=== PATIENT | male | born 1955 | race African-American/Black ===

== ENCOUNTER 2016-10-28 11:44 | Emergency (ER) | payer MEDICAID ==
[~2016-10-28] VITALS: Ht 175.3 cm; Wt 84.4 kg
[~2016-10-28 11:44] MED LIST: BACTRIM DS TAB1 EAC1 ORAL; KEFLEX500 MG ORAL; LISINOPRIL20 MG ORAL
[2016-10-28] MEDS ORDERED: Azithromycin 250mg tab ORAL ONE (12:15)
[2016-10-28] MEDS ORDERED: Lidocaine 1% MPF 10mg/ml 5ml IM ONE (12:15)
[2016-10-28 12:21] LABS: APPEARANCE,URINE SLIGHTLY CLOUDY; KETONES,URINE NEGATIVE (NEGATIVE); LEUKOCYTE ESTERASE ,URINE 3+ (NEGATIVE); NITRITE,URINE NEGATIVE (NEGATIVE); PH,URINE 5 (4.5-8.0); PROTEIN,URINE 2+ (NEGATIVE); UROBILINOGEN,URINE 1 MG/DL (0.0-1.0)
[2016-10-28 12:30] LABS: BACTERIA,URINE FEW /HPF; SQUAMOUS EPITHELIAL CELL,UR OCCASIONAL /LPF (NONE/OCC); WBC,URINE 30-40 /HPF (0 - 0)
[2016-10-28] MEDS ORDERED: NITROFURANTOIN100 M2 ORAL (12:47)
[2016-10-28 13:03] VITALS: BP 165/90
--- NOTE | 2016-10-28 13:26 | Emergency Room Report ---
History of Present Illness General Chief Complaint: Male Urogenital Problems Source: Patient, Medical Record Present Illness HPI 61YOM with painful penile yellow discharge since this morning. Multiple recent partners, no protection. No abd pain, nausea/vomiting, fever/chills, flank pain. History of gonorrhea. No other medical problems. Allergies: Coded Allergies: No Known Allergies (Unverified , 12/13/15) Patient History Past Medical History: none Past Surgical History: none Pertinent Family History: none Social History: Denies: alcohol use, drug use, smoking Immunizations: UTD Reviewed Nursing Documentation: PMH: Agreed, PSxH: Agreed Nursing Documentation-PMH Past Medical History: No History, Except For Hx Hypertension: Yes Review of Systems All Other Systems: negative except mentioned in HPI Physical Exam Vital Signs Date Time Temp Pulse Resp B/P Pulse Ox O2 Delivery O2 Flow Rate FiO2 10/28/16 11:50 97.9 80 16 169/93 99 Room Air Sp02 EP Interpretation: reviewed, abnormal General Appearance: normal inspection, well appearing, no apparent distress, alert, GCS 15, non-toxic, other - playing on [place] Head: normocephalic, atraumatic Eyes: bilateral eye EOMI, bilateral eye PERRL ENT: normal ENT inspection, hearing grossly normal, normal voice Neck: normal inspection, full range of motion, supple, no bony tend Respiratory: normal inspection, lungs clear, normal breath sounds, no respiratory distress, no retraction, no wheezing Cardiovascular #1: regular rate, rhythm, no edema Gastrointestinal: normal inspection, normal bowel sounds, non tender, soft, no guarding, no hernia Genitourinary: no CVA tenderness Musculoskeletal: normal inspection, back normal, normal range of motion, [place]w' s Sign negative Neurologic: normal inspection, alert, oriented x3, responsive, manager fiber III-XII nml as tested, motor strength/tone normal, speech normal Psychiatric: normal inspection, judgement/insight normal, mood/affect normal Skin: normal inspection, normal color, no rash Lymphatic: normal inspection Medical Decision Making Diagnostic Impression: Primary Impression: UTI (urinary tract infection) Qualified Codes: N30.01 - Acute cystitis with hematuria Additional Impression: Penile discharge ER Course Tx empirically for STDs in the ED RX Macrobid for possible concurrent UTI Well appearing VS notable for elevated BP - asymptomatic. Advised to followup with PMD for possible tx for HTN Counseled on safe sex practices DC home Last Vital Signs Date Time Temp Pulse Resp B/P Pulse Ox O2 Delivery O2 Flow Rate FiO2 10/28/16 13:03 97.7 80 16 165/90 97 Room Air Status: improved Disposition: HOME, SELF-CARE Condition: Improved Scripts Nitrofurantoin Monohyd/M-Cryst* (MACROBID 100 MG*) 100 Mg Capsule 100 MG ORAL EVERY 12 HOURS for 7 Days, #14 CAP Prov: JOSE ROSE M.D. 10/28/16 Patient Instructions: Urinary Tract Infection JOSE ROSE M.D. October 28, 2016 13:26
== END 2016-10-28 13:05 | disposition home or self-care (01) ==
LOC: EMR 12:28
DX: N30.01 Acute cystitis with hematuria (principal); R36.9 Urethral discharge, unspecified; I10 Essential (primary) hypertension
CPT/HCPCS: 81001; 87086; 96372; 99283; J0696; Q0144

== ENCOUNTER 2017-12-18 07:19 | Emergency (ER) | payer MEDICAID ==
[~2017-12-18] VITALS: Ht 172.7 cm; Wt 81.6 kg
[~2017-12-18 07:19] MED LIST changes: +NITROFURANTOIN100 M2 ORAL
[2017-12-18 07:41] VITALS: BP 143/82
[2017-12-18] MEDS ORDERED: Lidocaine 1% MPF 10mg/ml 5ml INJ ONE (07:45)
[2017-12-18 08:08] LABS: APPEARANCE,URINE SLIGHTLY CLOUDY; BILIRUBIN, URINE NEGATIVE (NEGATIVE); GLUCOSE, URINE (UA) NEGATIVE (NEGATIVE); KETONES,URINE NEGATIVE (NEGATIVE); LEUKOCYTE ESTERASE ,URINE 2+ (NEGATIVE); NITRITE,URINE NEGATIVE (NEGATIVE); PH,URINE 5 (4.5-8.0); PROTEIN,URINE NEGATIVE (NEGATIVE); UROBILINOGEN,URINE NORMAL MG/DL (0.0-1.0)
[2017-12-18 08:18] LABS: COLOR,URINE YELLOW
--- NOTE | 2017-12-18 08:31 | Emergency Room Report ---
History of Present Illness General Chief Complaint: Male Urogenital Problems Source: Patient Present Illness HPI Patient presents with dysuria. He had a questionable sexual contact. There is a discharge. He's had a sexually transmitted diseases in the past. He states this might be what going on at this time. No fevers, lymph node swelling, NVD, rashes. No URI, chest pain, dyspnea. Denies HIV. H/O HTN Allergies: Coded Allergies: No Known Allergies (Unverified , 12/13/15) Patient History Past Medical History: see triage record Past Surgical History: other - R wrist surgery Social History: Reports: smoking Social History Narrative was with "X" Reviewed Nursing Documentation: PMH: Agreed; PSxH: Agreed Nursing Documentation-PM Past Medical History: No History, Except For Hx Cardiac Problems: No Hx Hypertension: Yes Hx Pacemaker: No Hx Asthma: No Hx COPD: No Hx Diabetes: No Hx Cancer: No Hx Gastrointestinal Problems: No Hx Dialysis: No History Of Psychiatric Problem: No Hx Neurological Problems: No Hx Cerebrovascular Accident: No Hx Seizures: No Review of Systems All Other Systems: negative except mentioned in HPI Physical Exam Vital Signs Date Time Temp Pulse Resp B/P (MAP) Pulse Ox O2 Delivery O2 Flow Rate FiO2 12/18/17 07:31 97.9 68 16 143/82 96 Room Air 97.9 Sp02 EP Interpretation: reviewed, normal General Appearance: well appearing, no apparent distress, GCS 15 Head: normocephalic, atraumatic Eyes: bilateral eye normal inspection, bilateral eye PERRL ENT: hearing grossly normal, normal voice, moist mucus membranes Neck: full range of motion, supple Respiratory: no respiratory distress, speaking full sentences Cardiovascular #1: regular rate, rhythm Cardiovascular #2: 2+ radial (R) Gastrointestinal: normal inspection, normal bowel sounds, non tender, soft Genitourinary: scrotum normal, other - uncircumcised with d/c Musculoskeletal: back normal, digits/nails normal, gait/station normal, normal range of motion - except for R wrist, other - swan neck deform R wrist Neurologic: alert, normal gait, grossly normal Psychiatric: mood/affect normal Skin: no rash Medical Decision Making Diagnostic Impression: Primary Impression: Urethritis ER Course Patient presents with dysuria. His discharge. Clinical exam is most consistent with gonorrhea however, Chlamydia is another possibility. The patient treated with Rocephin and doxycycline. Labs will be sent. There is pyuria. Improved. Patient stable for outpatient observation and treatment. Laboratory Tests Test 12/18/17 07:30 Urine Color Yellow Urine Appearance Slightly cloudy Urine pH 5 (4.5-8.0) Urine Specific [place] 1.020 (1.005-1.035) Urine Protein Negative (NEGATIVE) Urine Glucose (UA) Negative (NEGATIVE) Urine Ketones Negative (NEGATIVE) Urine Occult Blood Negative (NEGATIVE) Urine Nitrite Negative (NEGATIVE) Urine Bilirubin Negative (NEGATIVE) Urine Urobilinogen Normal MG/DL (0.0-1.0) Urine Leukocyte Esterase 2+ (NEGATIVE) H Urine RBC 2-4 /HPF (0 - 0) H Urine WBC 10-15 /HPF (0 - 0) H Urine Squamous Epithelial Cells Few /LPF (NONE/OCC) Urine Bacteria Few /HPF (NONE) Last Vital Signs Date Time Temp Pulse Resp B/P (MAP) Pulse Ox O2 Delivery O2 Flow Rate FiO2 12/18/17 08:50 97.9 16 143/82 96 Room Air 97.9 12/18/17 07:31 68 Status: improved Disposition: HOME, SELF-CARE Condition: Improved Scripts Doxycycline Monohydrate* (DOXYCYCLINE MONOHYDRATE*) 100 Mg Capsule 100 MG ORAL Q12H, #14 CAP 0 Refills Prov: Mik Polk M.D. 12/18/17 Mik Polk M.D. Dec 18, 2017 08:31
[2017-12-18] MEDS ORDERED: DOXYCYCLINE MO100 MG ORAL (08:33)
[2017-12-18 08:50] VITALS: BP 143/82
== END 2017-12-18 08:50 | disposition home or self-care (01) ==
LOC: EMR 08:33
DX: N34.2 Other urethritis (principal); I10 Essential (primary) hypertension; F17.200 Nicotine dependence, unspecified, uncomplicated
CPT/HCPCS: 81003; 87086; 87590; 99283; J0696

== ENCOUNTER 2018-01-06 08:39 | Emergency (ER) | payer MEDICAID ==
[~2018-01-06] VITALS: Ht 175.3 cm; Wt 79.4 kg
[~2018-01-06 08:39] MED LIST changes: +DOXYCYCLINE MO100 MG ORAL
[2018-01-06] MEDS ORDERED: HYDROCHLOROTHIA25 MG ORAL (08:49)
[2018-01-06] MEDS ORDERED: Ampicillin/Sulbactam Sod 3 GM in NS 110 ML IV SCH (09:15)
[2018-01-06] MEDS ORDERED: Vancomycin 1.5gm/D5W 250ml 250 ML IVPB ONE (09:15)
--- NOTE | 2018-01-06 09:50 | Emergency Room Report ---
History of Present Illness General Chief Complaint: Syncope Source: Patient, Medical Record Present Illness HPI Patient is a 62-year-old male who presented after a syncopal episode. The patient reports feeling lightheaded. He subsequently fell. Patient denied any fever. He reports having increased swelling to his right lower extremity. This had been present intermittently since previous trauma to his right lower extremity. Patient has had multiple procedures including the fracture repair to the right lower extremity. Patient was noted to have increased drainage from right lower extremity wound. Allergies: Coded Allergies: No Known Allergies (Unverified , 12/13/15) Patient History Past Medical History: see triage record Reviewed Nursing Documentation: PMH: Agreed; PSxH: Agreed Nursing Documentation-PMH Past Medical History: No History, Except For Hx Cardiac Problems: No Hx Hypertension: Yes Hx Pacemaker: No Hx Asthma: No Hx COPD: No Hx Diabetes: No Hx Cancer: No Hx Gastrointestinal Problems: No Hx Dialysis: No Hx Neurological Problems: No Hx Cerebrovascular Accident: No Hx Seizures: No Review of Systems All Other Systems: negative except mentioned in HPI Physical Exam Vital Signs Date Time Temp Pulse Resp B/P (MAP) Pulse Ox O2 Delivery O2 Flow Rate FiO2 01/06/18 08:46 97.8 86 18 140/80 95 Room Air 97.9 Sp02 EP Interpretation: reviewed, normal General Appearance: normal inspection, well appearing, no apparent distress, alert, GCS 15, Chronically Ill Head: atraumatic ENT: normal ENT inspection, hearing grossly normal, normal voice Neck: normal inspection, full range of motion, supple, no bony tend Respiratory: normal inspection, lungs clear, no respiratory distress, no retraction, no wheezing Cardiovascular #1: regular rate, rhythm, edema - right leg slight edema Gastrointestinal: normal inspection, normal bowel sounds, non tender, soft, no guarding, no hernia Genitourinary: no CVA tenderness Musculoskeletal: normal inspection, back normal, decreased range of motion - right foot with slight swelling, open wound to heel with slight foul smelling drainage, other - right upper extremity chronic deformity, normal wrist ROM Neurologic: normal inspection, alert, oriented x3, responsive, manager store III-XII nml as tested, speech normal Psychiatric: normal inspection, judgement/insight normal, mood/affect normal Skin: normal inspection, normal color, no rash, other - right foot with abnormal soft tissue defect slight discoloration, no erythema Medical Decision Making Diagnostic Impression: Primary Impression: Abnormal EKG Additional Impression: Wound infection ER Course Patient presented for syncope. Differential diagnosis included but was not limited to arrhythmia, orthostatic hypotension, hypovolemia, vasovagal, anemia among others. EKG interpreted by me showed normal sinus rhythm with a rate of 73 with left ventricular hypertrophy as well as T-wave inversion in the inferior and lateral leads. Laboratory testing was unremarkable. Patient was given IV vancomycin as well as Unasyn the due to infection to his right heel. Patient was advised that he needed further workup due to abnormal EKG and he indicated understanding. Patient stated he could not stay in the hospital due to difficulty with early childhood associate.The patient was advised risk benefits alternatives of leaving AGAINST MEDICAL ADVICE and he indicated understanding and all questions are answered patient still continued want to leave and signed AGAINST MEDICAL ADVICE. Despite risks including but not limited to disability and worsening of current lifestyle. Labs Test 01/06/18 09:10 01/06/18 09:30 01/06/18 09:50 White Blood Count 10.8 K/UL (4.8-10.8) Red Blood Count 5.08 M/UL (4.70-6.10) Hemoglobin 14.8 G/DL (14.2-18.0) Hematocrit 44.4 % (42.0-52.0) Mean Corpuscular Volume 87 FL (80-99) Mean Corpuscular Hemoglobin 29.1 PG (27.0-31.0) Mean Corpuscular Hemoglobin Concent 33.2 G/DL (32.0-36.0) Red Cell Distribution Width 11.8 % (11.6-14.8) Platelet Count 358 K/UL (150-450) Mean Platelet Volume 6.5 FL (6.5-10.1) Neutrophils (%) (Auto) 62.0 % (45.0-75.0) Lymphocytes (%) (Auto) 28.3 % (20.0-45.0) Monocytes (%) (Auto) 7.8 % (1.0-10.0) Eosinophils (%) (Auto) 0.9 % (0.0-3.0) Basophils (%) (Auto) 1.0 % (0.0-2.0) Prothrombin Time 10.2 SEC (9.30-11.50) Prothromb Time International Ratio 1.0 (0.9-1.1) Activated Partial Thromboplast Time 29 SEC (23-33) Sodium Level 136 MMOL/L (136-145) Potassium Level 3.1 MMOL/L (3.5-5.1) Chloride Level 101 MMOL/L (98-107) Carbon Dioxide Level 25 MMOL/L (21-32) Anion Gap 10 mmol/L (5-15) Blood Urea Nitrogen 17 mg/dL (7-18) Creatinine 1.4 MG/DL (0.55-1.30) Estimat Glomerular Filtration Rate > 60 mL/min (>60) Glucose Level 112 MG/DL (74-106) Calcium Level 8.7 MG/DL (8.5-10.1) Phosphorus Level 3.5 MG/DL (2.5-4.9) Magnesium Level 1.8 MG/DL (1.8-2.4) Total Bilirubin 0.8 MG/DL (0.2-1.0) Aspartate Amino Transf (AST/SGOT) 12 U/L (15-37) Alanine Aminotransferase (ALT/SGPT) 12 U/L (12-78) Alkaline Phosphatase 78 U/L (46-116) Total Creatine Kinase 88 U/L (26-308) Creatine Kinase MB 1.4 NG/ML (0.0-3.6) Creatine Kinase MB Relative Index 1.5 Troponin I 0.005 ng/mL (0.000-0.056) Total Protein 7.5 G/DL (6.4-8.2) Albumin 3.4 G/DL (3.4-5.0) Globulin 4.1 g/dL Albumin/Globulin Ratio 0.8 (1.0-2.7) Lactic Acid Level 1.10 mmol/L (0.4-2.0) Urine Color Yellow Urine Appearance Clear Urine pH 5 (4.5-8.0) Urine Specific [place] 1.020 (1.005-1.035) Urine Protein Negative (NEGATIVE) Urine Glucose (UA) Negative (NEGATIVE) Urine Ketones Negative (NEGATIVE) Urine Occult Blood Negative (NEGATIVE) Urine Nitrite Negative (NEGATIVE) Urine Bilirubin Negative (NEGATIVE) Urine Urobilinogen 1 MG/DL (0.0-1.0) Urine Leukocyte Esterase Negative (NEGATIVE) Last Vital Signs Date Time Temp Pulse Resp B/P (MAP) Pulse Ox O2 Delivery O2 Flow Rate FiO2 01/06/18 08:46 97.8 86 18 140/80 95 Room Air 97.9 Status: improved Disposition: AGAINST MEDICAL ADVICE Condition: Stable Scripts Cephalexin* (KEFLEX*) 500 Mg Capsule 500 MG ORAL EVERY 6 HOURS, #40 CAP Prov: Eren Carter MD 01/06/18 Doxycycline Monohydrate* (DOXYCYCLINE MONOHYDRATE*) 100 Mg Capsule 100 MG ORAL Q12H, #20 CAP 0 Refills Prov: Eren Carter MD 01/06/18 Referrals: [facility],REFERRING (PCP) Eren Carter MD Jan 06, 2018 09:50
[2018-01-06 09:51] LABS: ANION GAP 10 mmol/L (5-15); BLOOD UREA NITROGEN 17 mg/dL (7-18); CALCIUM 8.7 MG/DL (8.5-10.1); CARBON DIOXIDE 25 MMOL/L (21-32); CHLORIDE 101 MMOL/L (98-107); CREATININE 1.4 MG/DL (0.55-1.30); POTASSIUM 3.1 MMOL/L (3.5-5.1); SODIUM 136 MMOL/L (136-145)
[2018-01-06 09:52] LABS: EOSINOPHILS % (AUTO) 0.9 % (0.0-3.0); HEMATOCRIT 44.4 % (42.0-52.0); HEMOGLOBIN 14.8 G/DL (14.2-18.0); LYMPHOCYTES % (AUTO) 28.3 % (20.0-45.0); MEAN CORPUSCULAR VOLUME 87 FL (80-99); MONOCYTES % (AUTO) 7.8 % (1.0-10.0); PLATELET COUNT 358 K/UL (150-450); RED BLOOD COUNT 5.08 M/UL (4.70-6.10); RED CELL DISTRIBUTION WIDTH 11.8 % (11.6-14.8); WHITE BLOOD COUNT 10.8 K/UL (4.8-10.8)
[2018-01-06 10:00] VITALS: BP 130/68
[2018-01-06 10:04] LABS: ALANINE AMINOTRANSFERASE 12 U/L (12-78); ALBUMIN 3.4 G/DL (3.4-5.0); ALBUMIN/GLOBULIN RATIO 0.8 (1.0-2.7); ALKALINE PHOSPHATASE 78 U/L (46-116); ASPARTATE AMINO TRANSFERASE 12 U/L (15-37); BILIRUBIN,TOTAL 0.8 MG/DL (0.2-1.0); CKMB 1.4 NG/ML (0.0-3.6); CREATINE KINASE 88 U/L (26-308); PHOSPHORUS 3.5 MG/DL (2.5-4.9)
[2018-01-06 10:09] LABS: APPEARANCE,URINE CLEAR; BILIRUBIN, URINE NEGATIVE (NEGATIVE); GLUCOSE, URINE (UA) NEGATIVE (NEGATIVE); KETONES,URINE NEGATIVE (NEGATIVE); LEUKOCYTE ESTERASE ,URINE NEGATIVE (NEGATIVE); NITRITE,URINE NEGATIVE (NEGATIVE); PH,URINE 5 (4.5-8.0); PROTEIN,URINE NEGATIVE (NEGATIVE); UROBILINOGEN,URINE 1 MG/DL (0.0-1.0)
[2018-01-06 10:12] LABS: COLOR,URINE YELLOW
--- NOTE | 2018-01-06 10:35 | Diagnostic Imaging Report ---
Indication: Shortness of breath Technique: XRAY Chest 1v Comparison: None Findings: Heart size within the upper limits for normal. Aorta is mildly tortuous. There is no focal airspace consolidation, pleural effusion or pneumothorax. No acute osseous abnormality identified. Impression: No radiographic evidence of acute cardiopulmonary disease.
[2018-01-06] MEDS ORDERED: DOXYCYCLINE MO100 MG ORAL (11:37)
[2018-01-06] MEDS ORDERED: CEPHALEXIN500 MG ORAL (11:37)
[2018-01-06 11:53] VITALS: BP 130/68
--- NOTE | 2018-01-07 14:58 | Cardiology Report ---
APPROVED REPORT EKG Measurement Heart [id number] [id number] Normal sinus rhythm Possible Left atrial enlargement Left ventricular hypertrophy with repolarization abnormality Abnormal ECG
--- NOTE | 2018-01-10 14:14 | Diagnostic Imaging Report ---
APPROVED REPORT CPT Code: 97305 Present Symptoms Lower Extremity Pain: Right RIGHT LEG: Venous imaging reveals a patent deep venous system. There is no evidence of thrombus within the femoral, popliteal or tibial segments. The greater saphenous vein is also within normal limits. Doppler indicates normal spontaneous flow within these segments. INCIDENTAL FINDINGS: Imaging of the ( right) popliteal fossa reveals a Bakers cyst measuring approximately 0.9cm x 1.0 cm.
== END 2018-01-06 11:55 | disposition left against medical advice (07) ==
LOC: EMR 09:24 → CANBEDREQ 11:38 → EMR 11:55
DX: R94.31 Abnormal electrocardiogram [ECG] [EKG] (principal); S91.301A Unspecified open wound, right foot, initial encounter; I10 Essential (primary) hypertension
CPT/HCPCS: 36415; 71045; 80053; 81003; 82550; 82553; 83605; 83735; 84100; 84484; 85025; 85610; 85730; 87040; 93005; 93971; 96365; 96366; 96367; 99285; J0295; J3370; J8499

== ENCOUNTER 2018-01-17 08:52 | Emergency (ER) | payer MEDICAID ==
[~2018-01-17] VITALS: Ht 175.3 cm; Wt 81.6 kg
[~2018-01-17 08:52] MED LIST changes: +CEPHALEXIN500 MG ORAL; +HYDROCHLOROTHIA25 MG ORAL
[2018-01-17 09:01] VITALS: BP 127/74
[2018-01-17] MEDS ORDERED: Aspirin Baby 81mg ORAL ONE (09:15)
[2018-01-17 09:28] LABS: HEMATOCRIT 39.4 % (42.0-52.0); HEMOGLOBIN 13.6 G/DL (14.2-18.0); LYMPHOCYTES % (AUTO) 27.9 % (20.0-45.0); MEAN CORPUSCULAR VOLUME 87 FL (80-99); MONOCYTES % (AUTO) 7.4 % (1.0-10.0); NEUTROPHILS % (AUTO) 61.7 % (45.0-75.0); PLATELET COUNT 300 K/UL (150-450); RED BLOOD COUNT 4.53 M/UL (4.70-6.10); RED CELL DISTRIBUTION WIDTH 11.4 % (11.6-14.8); WHITE BLOOD COUNT 9.1 K/UL (4.8-10.8)
--- NOTE | 2018-01-17 09:37 | Emergency Room Report ---
History of Present Illness General Chief Complaint: Chest Pain Source: Patient, Medical Record Present Illness HPI Patient presents with complaints of chest pain external Denies any shortness of breath Reports that the pain came on this morning at rest Describes it as 3 out of 10 midsternal and left upper chest at times heavy at times sharp Denies any change with position or exertion denies any vomiting or diarrhea Denies any back or flank pain Patient has a previous injury involving the right lower extremity in the right wrist this was many years ago Patient reports that he has been trying to have a revision done of his right leg Allergies: Coded Allergies: No Known Allergies (Unverified , 12/13/15) Patient History Past Medical History: see triage record Pertinent Family History: none Reviewed Nursing Documentation: PMH: Agreed; PSxH: Agreed Nursing Documentation-PMH Past Medical History: No History, Except For Hx Cardiac Problems: No Hx Hypertension: Yes Hx Pacemaker: No Hx Asthma: No Hx COPD: No Hx Diabetes: No Hx Cancer: No Hx Gastrointestinal Problems: No Hx Dialysis: No Hx Neurological Problems: No Hx Cerebrovascular Accident: No Hx Seizures: No Review of Systems All Other Systems: negative except mentioned in HPI Physical Exam Vital Signs Date Time Temp Pulse Resp B/P (MAP) Pulse Ox O2 Delivery O2 Flow Rate FiO2 01/17/18 08:56 98.4 82 18 127/74 95 Room Air 98.4 Sp02 EP Interpretation: reviewed, normal General Appearance: well appearing, no apparent distress Head: normocephalic, atraumatic Eyes: bilateral eye PERRL, bilateral eye EOMI ENT: normal pharynx Neck: full range of motion Respiratory: chest non-tender, lungs clear Cardiovascular #1: regular rate, rhythm Gastrointestinal: non tender, soft, no mass Genitourinary: no CVA tenderness Musculoskeletal: other - Patient has even urgent of his right ankle, previous surgery on the right wrist Neurologic: alert, oriented x3 Skin: other - Reports swelling of his right ankle Lymphatic: no adenopathy Medical Decision Making Diagnostic Impression: Primary Impression: ACS (acute coronary syndrome) ER Course Patient is a fairly complex patient with multiple differential to consideration including but not limited to cardiac cardiopulmonary and vascular emergencies Given the patient's description of pain EKG is abnormal patient has not had any previous cardiac workup Patient will require further inpatient care and evaluation Initial lab work is appropriate And patient requested for admission in improved yet serious condition Labs Test 01/17/18 09:20 White Blood Count 9.1 K/UL (4.8-10.8) Red Blood Count 4.53 M/UL (4.70-6.10) Hemoglobin 13.6 G/DL (14.2-18.0) Hematocrit 39.4 % (42.0-52.0) Mean Corpuscular Volume 87 FL (80-99) Mean Corpuscular Hemoglobin 30.1 PG (27.0-31.0) Mean Corpuscular Hemoglobin Concent 34.6 G/DL (32.0-36.0) Red Cell Distribution Width 11.4 % (11.6-14.8) Platelet Count 300 K/UL (150-450) Mean Platelet Volume 5.6 FL (6.5-10.1) Neutrophils (%) (Auto) 61.7 % (45.0-75.0) Lymphocytes (%) (Auto) 27.9 % (20.0-45.0) Monocytes (%) (Auto) 7.4 % (1.0-10.0) Eosinophils (%) (Auto) 2.0 % (0.0-3.0) Basophils (%) (Auto) 1.0 % (0.0-2.0) Sodium Level 132 MMOL/L (136-145) Potassium Level 3.4 MMOL/L (3.5-5.1) Chloride Level 103 MMOL/L (98-107) Carbon Dioxide Level 25 MMOL/L (21-32) Anion Gap 4 mmol/L (5-15) Blood Urea Nitrogen 16 mg/dL (7-18) Creatinine 1.3 MG/DL (0.55-1.30) Estimat Glomerular Filtration Rate > 60 mL/min (>60) Glucose Level 106 MG/DL (74-106) Calcium Level 8.6 MG/DL (8.5-10.1) Total Bilirubin 0.9 MG/DL (0.2-1.0) Aspartate Amino Transf (AST/SGOT) 15 U/L (15-37) Alanine Aminotransferase (ALT/SGPT) 15 U/L (12-78) Alkaline Phosphatase 77 U/L (46-116) Total Creatine Kinase 111 U/L (26-308) Creatine Kinase MB 1.9 NG/ML (0.0-3.6) Creatine Kinase MB Relative Index 1.7 Troponin I 0.000 ng/mL (0.000-0.056) Pro-B-Type Natriuretic Peptide 124 pg/mL (0-125) Total Protein 6.9 G/DL (6.4-8.2) Albumin 3.2 G/DL (3.4-5.0) Globulin 3.7 g/dL Albumin/Globulin Ratio 0.9 (1.0-2.7) Labs Test 01/17/18 09:20 White Blood Count 9.1 K/UL (4.8-10.8) Red Blood Count 4.53 M/UL (4.70-6.10) Hemoglobin 13.6 G/DL (14.2-18.0) Hematocrit 39.4 % (42.0-52.0) Mean Corpuscular Volume 87 FL (80-99) Mean Corpuscular Hemoglobin 30.1 PG (27.0-31.0) Mean Corpuscular Hemoglobin Concent 34.6 G/DL (32.0-36.0) Red Cell Distribution Width 11.4 % (11.6-14.8) Platelet Count 300 K/UL (150-450) Mean Platelet Volume 5.6 FL (6.5-10.1) Neutrophils (%) (Auto) 61.7 % (45.0-75.0) Lymphocytes (%) (Auto) 27.9 % (20.0-45.0) Monocytes (%) (Auto) 7.4 % (1.0-10.0) Eosinophils (%) (Auto) 2.0 % (0.0-3.0) Basophils (%) (Auto) 1.0 % (0.0-2.0) Sodium Level 132 MMOL/L (136-145) Potassium Level 3.4 MMOL/L (3.5-5.1) Chloride Level 103 MMOL/L (98-107) Carbon Dioxide Level 25 MMOL/L (21-32) Anion Gap 4 mmol/L (5-15) Blood Urea Nitrogen 16 mg/dL (7-18) Creatinine 1.3 MG/DL (0.55-1.30) Estimat Glomerular Filtration Rate > 60 mL/min (>60) Glucose Level 106 MG/DL (74-106) Calcium Level 8.6 MG/DL (8.5-10.1) EKG Diagnostic Results Rate: normal Rhythm: NSR ST Segments: other - Nonspecific ST and T-wave changes including flipped T waves in 2-3 aVF and V6 Rhythm Strip Diag. Results EP Interpretation: yes Rate: 66 Rhythm: NSR, no PVC's, no ectopy Chest X-Ray Diagnostic Results Chest X-Ray Diagnostic Results : Chest X-Ray Ordered: Yes # of Views/Limited/Complete: 1 View Indication: Chest Pain EP Interpretation: Yes Interpretation: no consolidation, no effusion, no pneumothorax Impression: No acute disease Electronically Signed by: Sulaiman Vasquez DO Last Vital Signs Date Time Temp Pulse Resp B/P (MAP) Pulse Ox O2 Delivery O2 Flow Rate FiO2 01/17/18 09:01 82 18 01/17/18 09:01 98.4 127/74 95 Room Air 98.4 Status: improved Disposition: XFER SHT-TRM HOSP Condition: Serious Referrals: [facility],REFERRING (PCP) Sulaimna Vasquez DO Jan 17, 2018 09:37
[2018-01-17 09:41] LABS: ANION GAP 4 mmol/L (5-15); BLOOD UREA NITROGEN 16 mg/dL (7-18); CALCIUM 8.6 MG/DL (8.5-10.1); CARBON DIOXIDE 25 MMOL/L (21-32); CHLORIDE 103 MMOL/L (98-107); CREATININE 1.3 MG/DL (0.55-1.30); POTASSIUM 3.4 MMOL/L (3.5-5.1); SODIUM 132 MMOL/L (136-145)
[2018-01-17 09:57] LABS: ALANINE AMINOTRANSFERASE 15 U/L (12-78); ALBUMIN 3.2 G/DL (3.4-5.0); ALBUMIN/GLOBULIN RATIO 0.9 (1.0-2.7); ALKALINE PHOSPHATASE 77 U/L (46-116); ASPARTATE AMINO TRANSFERASE 15 U/L (15-37); BILIRUBIN,TOTAL 0.9 MG/DL (0.2-1.0); CKMB 1.9 NG/ML (0.0-3.6); CREATINE KINASE 111 U/L (26-308)
--- NOTE | 2018-01-17 09:58 | Diagnostic Imaging Report ---
EXAM: XR Chest, 1 View CLINICAL HISTORY: CP TECHNIQUE: Frontal view of the chest. COMPARISON: Chest x-ray 01/06/18 FINDINGS: Lungs: Mild right lower lung atelectasis/mild infiltrate. Lungs otherwise clear. Pleural space: Unremarkable. No pneumothorax. Heart: Mild cardiomegaly. Mediastinum: Unremarkable. Bones/joints: Unremarkable. Other findings: IMPRESSION: Mild right lower lung atelectasis/infiltrate.
[2018-01-17 11:44] VITALS: BP 118/76
[2018-01-17 14:16] VITALS: BP 122/68
[2018-01-17 14:48] VITALS: BP 122/68
--- NOTE | 2018-01-18 18:40 | Cardiology Report ---
APPROVED REPORT EKG Measurement Heart [id number] [id number] Normal sinus rhythm Incomplete right bundle branch block Minimal voltage criteria for LVH, may be normal variant Abnormal ECG
== END 2018-01-17 14:50 | disposition short-term general hospital (02) ==
LOC: EMR 09:04
DX: I24.9 Acute ischemic heart disease, unspecified (principal)
CPT/HCPCS: 36415; 71045; 80053; 82550; 82553; 83880; 84484; 85025; 93005; 99284

== ENCOUNTER 2018-07-05 07:23 | Emergency (ER) | payer MEDICAID ==
[~2018-07-05] VITALS: Ht 175.3 cm; Wt 77.1 kg
--- NOTE | 2018-07-05 07:40 | NUR ---
ED Nurse Note: Patient walked into ED from home, patient drove himself here by himself, c/o watery stool for 1 week, abd pain for 3 days, no n/v.
[2018-07-05] MEDS ORDERED: Ketorolac 30mg Inj IV ONE (08:15)
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
[2018-07-05 08:29] VITALS: BP 172/86
[2018-07-05 08:36] LABS: APPEARANCE,URINE CLEAR; BILIRUBIN, URINE NEGATIVE (NEGATIVE); GLUCOSE, URINE (UA) NEGATIVE (NEGATIVE); KETONES,URINE 1+ (NEGATIVE); LEUKOCYTE ESTERASE ,URINE 1+ (NEGATIVE); NITRITE,URINE NEGATIVE (NEGATIVE); PH,URINE 5 (4.5-8.0); PROTEIN,URINE NEGATIVE (NEGATIVE); UROBILINOGEN,URINE 1 MG/DL (0.0-1.0)
[2018-07-05 08:38] LABS: COLOR,URINE YELLOW
[2018-07-05 08:40] LABS: BASOPHILS % (AUTO) 0.8 % (0.0-2.0); EOSINOPHILS % (AUTO) 1.2 % (0.0-3.0); HEMOGLOBIN 14.9 G/DL (14.2-18.0); MEAN CORPUSCULAR VOLUME 89 FL (80-99); MONOCYTES % (AUTO) 8.7 % (1.0-10.0); NEUTROPHILS % (AUTO) 61.2 % (45.0-75.0); PLATELET COUNT 307 K/UL (150-450); RED BLOOD COUNT 5.03 M/UL (4.70-6.10); WHITE BLOOD COUNT 8.3 K/UL (4.8-10.8)
[2018-07-05 08:46] LABS: ANION GAP 7 mmol/L (5-15); BLOOD UREA NITROGEN 8 mg/dL (7-18); CALCIUM 8.9 MG/DL (8.5-10.1); CARBON DIOXIDE 27 MMOL/L (21-32); CHLORIDE 104 MMOL/L (98-107); CREATININE 1.2 MG/DL (0.55-1.30); POTASSIUM 4.5 MMOL/L (3.5-5.1); SODIUM 138 MMOL/L (136-145)
[2018-07-05 08:59] LABS: ALANINE AMINOTRANSFERASE 16 U/L (12-78); ALBUMIN 3.4 G/DL (3.4-5.0); ALBUMIN/GLOBULIN RATIO 0.8 (1.0-2.7); ALKALINE PHOSPHATASE 82 U/L (46-116); ASPARTATE AMINO TRANSFERASE 14 U/L (15-37); BILIRUBIN,TOTAL 0.4 MG/DL (0.2-1.0); CREATINE KINASE 96 U/L (26-308)
--- NOTE | 2018-07-05 09:26 | Diagnostic Imaging Report ---
EXAM: XR Abdomen, 1 Views CLINICAL HISTORY: ABD PAIN TECHNIQUE: Frontal view of the abdomen/pelvis . COMPARISON: No relevant prior studies available. FINDINGS: Gastrointestinal tract: Nonspecific gassy small bowel in the left abdomen. No bowel obstruction. Bones/joints: Unremarkable. Vasculature: Phleboliths in the pelvis. Other findings: . IMPRESSION: Nonspecific gassy small bowel in the left abdomen. No bowel obstruction.
--- NOTE | 2018-07-05 09:27 | Diagnostic Imaging Report ---
EXAM: XR Chest, 1 View CLINICAL HISTORY: ABD PAIN TECHNIQUE: Frontal view of the chest. COMPARISON: No relevant prior studies available. FINDINGS: Lungs: Unremarkable. No consolidation. Pleural space: Unremarkable. No pneumothorax. Heart: Cardiomegaly. Mediastinum: Unremarkable. Bones/joints: Unremarkable. Vasculature: Ectatic aorta. IMPRESSION: No acute findings.
[2018-07-05] MEDS ORDERED: TRAMADOL HCL50 MG ORAL (10:19)
[2018-07-05] MEDS ORDERED: TYLENOL325 MG ORAL (10:19)
[2018-07-05 10:28] VITALS: BP 172/86
[2018-07-05] MEDS ORDERED: Lisinopril 10mg tab ORAL ONE (10:30)
--- NOTE | 2018-07-05 10:30 | NUR ---
ED Nurse Note: Patient is discharged by ERMD Dr. Polk. patient's ID band removed and IV is taken out without any complication. Discharge paper/instruction/prescription given and explained to the patient, patient verbalized understanding. Patient left ED with steady gait with all belongings. patient cleared for discharge, MD noted BP, lisinopril given at ED as pt stated he did not take one this morning.
--- NOTE | 2018-07-05 11:06 | Cardiology Report ---
APPROVED REPORT EKG Measurement Heart [id number] Normal sinus rhythm Possible Left atrial enlargement Left ventricular hypertrophy T wave abnormality, consider inferior ischemia Abnormal ECG
== END 2018-07-05 10:32 | disposition home or self-care (01) ==
LOC: EMR 10:00
DX: R10.32 Left lower quadrant pain (principal); I10 Essential (primary) hypertension; F17.200 Nicotine dependence, unspecified, uncomplicated; Z96.641 Presence of right artificial hip joint
CPT/HCPCS: 36415; 71045; 74018; 80053; 81003; 82550; 83690; 84484; 85025; 85610; 85730; 93005; 96361; 96374; 96375; 99284; J1885; J2405

== ENCOUNTER 2018-08-07 10:10 | Emergency (ER) | payer MEDICAID ==
[~2018-08-07] VITALS: Ht 172.7 cm; Wt 77.1 kg
[~2018-08-07 10:10] MED LIST changes: +TRAMADOL HCL50 MG ORAL; +TYLENOL325 MG ORAL
[2018-08-07 10:25] VITALS: BP 159/90
--- NOTE | 2018-08-07 10:25 | NUR ---
ED Nurse Note: A/OX4. AMBULATED IN TO ER DUE TO A SMALL LUMP IN THE RIGHT TESTICLE. PT DENIES ANY PAIN, SWELLING, ITCHING, NOR DISCHARGE. SYMMETRY NOTED ON THE BILATERAL TESTICLES.
--- NOTE | 2018-08-07 10:28 | NUR ---
ED Nurse Note: urine sent down to the lab.
[2018-08-07 10:31] LABS: APPEARANCE,URINE CLEAR; BILIRUBIN, URINE NEGATIVE (NEGATIVE); GLUCOSE, URINE (UA) NEGATIVE (NEGATIVE); KETONES,URINE NEGATIVE (NEGATIVE); LEUKOCYTE ESTERASE ,URINE 1+ (NEGATIVE); NITRITE,URINE NEGATIVE (NEGATIVE); PH,URINE 5 (4.5-8.0); PROTEIN,URINE NEGATIVE (NEGATIVE); UROBILINOGEN,URINE 4 MG/DL (0.0-1.0)
[2018-08-07 10:42] LABS: COLOR,URINE YELLOW
--- NOTE | 2018-08-07 10:43 | NUR ---
ED Nurse Note: US AT THE BEDSIDE.
--- NOTE | 2018-08-07 12:10 | Diagnostic Imaging Report ---
Indications: Palpable right scrotal mass Technique: Grayscale and duplex images of the scrotum Comparison: none Findings: There is a palpable smooth mobile mass in the upper right hemiscrotum. This is equivocally adjacent to the spermatic cord, possibly in the lower inguinal canal. This is slightly heterogeneously hypoechoic, measures 2.9 x 1.3 cm, contains internal vascularity. The right testicle measures 4.3cm in length. It demonstrates normal echogenicity. Normal Doppler flow. A small cyst is seen in the epididymal head. There is a small right hydrocele. There is a questionable small right varicocele The left testicle measures 4.7 cm in length. It demonstrates normal echogenicity and normal Doppler flow. There is a 1.5 cm cyst in the epididymal head. There is questionably a small varicocele. Impression: Uniformly hypoechoic upper intrascrotal mass with internal vascularity, possibly but not definitively related to the spermatic cord. 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 MRI recommended for more definitive evaluation. Should lesion turned out not to be a lipoma then urological evaluation is recommended due to high likelihood of malignancy in non-lipomatous lesions of the inguinal canal No testicular abnormality demonstrated Bilateral epididymal cysts versus spermatoceles. Bilateral small varicoceles, small right hydrocele incidentally noted Findings discussed by phone with Dr. Galan at the time of interpretation
--- NOTE | 2018-08-07 12:31 | Emergency Room Report ---
History of Present Illness General Chief Complaint: Male Urogenital Problems Source: Patient Present Illness HPI Patient states he noted a lump in his right scrotum. He states he noticed this many months ago. He is here to get it evaluated. He denies pain. He denies dysuria or hematuria. He states that he has had urinary frequency. He states the last time he had urinary frequency he had Trichomonas. He would like treatment for STDs as a precaution. He has no other complaints. Allergies: Coded Allergies: No Known Allergies (Unverified , 12/13/15) Patient History Past Medical History: see triage record, HTN Social History: Denies: smoking, alcohol use, drug use Reviewed Nursing Documentation: PMH: Agreed; PSxH: Agreed Nursing Documentation-PMH Past Medical History: No History, Except For Hx Cardiac Problems: No Hx Hypertension: Yes Hx Pacemaker: No Hx Asthma: No Hx COPD: No Hx Diabetes: No Hx Cancer: No Hx Gastrointestinal Problems: No Hx Dialysis: No History Of Psychiatric Problem: No Hx Neurological Problems: No Hx Cerebrovascular Accident: No Hx Seizures: No Review of Systems All Other Systems: negative except mentioned in HPI Physical Exam Vital Signs Date Time Temp Pulse Resp B/P (MAP) Pulse Ox O2 Delivery O2 Flow Rate FiO2 08/07/18 10:17 97.7 75 14 159/90 94 Room Air Sp02 EP Interpretation: reviewed, normal General Appearance: no apparent distress, alert, GCS 15, non-toxic Head: normocephalic, atraumatic Eyes: bilateral eye normal inspection, bilateral eye PERRL ENT: hearing grossly normal, normal pharynx, no angioedema, normal voice Neck: full range of motion, supple/symm/no masses Respiratory: chest non-tender, lungs clear, normal breath sounds, no respiratory distress, no retraction, no accessory muscle use, speaking full sentences Cardiovascular #1: regular rate, rhythm, no edema Gastrointestinal: normal bowel sounds, non tender, soft, non-distended, no guarding, no rebound Rectal: deferred Genitourinary: normal inspection, no CVA tenderness, other - smooth mass palpable adjacent to the R. inguinal canal, upper hemiscrotum. Musculoskeletal: back normal, gait/station normal, normal range of motion, non- tender Neurologic: alert, oriented x3, responsive, motor strength/tone normal, sensory intact, speech normal Psychiatric: judgement/insight normal, memory normal, mood/affect normal, no suicidal/homicidal ideation Skin: normal color, no rash, warm/dry, well hydrated Medical Decision Making Diagnostic Impression: Primary Impression: Scrotal mass ER Course Patient is found to have a mass in the right hemiscrotum. The radiologist states that this is likely a lipoma. However, malignancy cannot be ruled out at this time. The patient was instructed that he would need to undergo an MRI of this area as an outpatient. He was instructed to follow-up closely with his primary care physician to obtain this. The patient also requested STD treatment. He was given Rocephin IM, azithromycin and Flagyl by mouth to cover gonorrhea, Chlamydia and trichomoniasis. This is at the patient's request. The patient is given close follow-up instructions and return precautions. Laboratory Tests Test 08/07/18 10:25 Urine Color Yellow Urine Appearance Clear Urine pH 5 (4.5-8.0) Urine Specific [place] 1.020 (1.005-1.035) Urine Protein Negative (NEGATIVE) Urine Glucose (UA) Negative (NEGATIVE) Urine Ketones Negative (NEGATIVE) Urine Blood 1+ (NEGATIVE) H Urine Nitrite Negative (NEGATIVE) Urine Bilirubin Negative (NEGATIVE) Urine Urobilinogen 4 MG/DL (0.0-1.0) H Urine Leukocyte Esterase 1+ (NEGATIVE) H Urine RBC 0-2 /HPF (0 - 0) H Urine WBC 0-2 /HPF (0 - 0) Urine Squamous Epithelial Cells Few /LPF (NONE/OCC) Urine Bacteria Occasional /HPF (NONE) CT/MRI/US Diagnostic Results CT/MRI/US Diagnostic Results : Imaging Test Ordered: US Scrotum Impression Impression: Uniformly hypoechoic upper intrascrotal mass with internal vascularity, possibly but not definitively related to the spermatic cord. 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 MRI recommended for more definitive evaluation. Should lesion turned out not to be a lipoma then urological evaluation is recommended due to high likelihood of malignancy in non-lipomatous lesions of the inguinal canal No testicular abnormality demonstrated Bilateral epididymal cysts versus spermatoceles. Bilateral small varicoceles, small right hydrocele incidentally noted Last Vital Signs Date Time Temp Pulse Resp B/P (MAP) Pulse Ox O2 Delivery O2 Flow Rate FiO2 08/07/18 10:25 97.7 75 14 159/90 94 Room Air Status: improved Disposition: HOME, SELF-CARE Condition: Improved Referrals: NON PHYSICIAN (PCP) Marlena Segura DO Aug 07, 2018 12:31
[2018-08-07] MEDS ORDERED: Lidocaine 1% MPF 10mg/ml 5ml INJ ONE (13:30)
[2018-08-07] MEDS ORDERED: Azithromycin 250mg tab ORAL ONE (13:30)
[2018-08-07] MEDS ORDERED: metroNIDAZOLE 500mg tab ORAL ONE (13:30)
[2018-08-07 14:15] VITALS: BP 145/82
--- NOTE | 2018-08-07 14:15 | NUR ---
ED Nurse Note: Pt cleared by health care Provider for discharge. DC instructions/prescription was given and explained to pt and verbalized understanding of teachings. All medical deviecs such as ID band removed. Pt is AAO x4, ambulatory and left with all personal belongings.
== END 2018-08-07 14:16 | disposition home or self-care (01) ==
LOC: EMR 10:45
DX: N50.89 Other specified disorders of the male genital organs (principal); I10 Essential (primary) hypertension
CPT/HCPCS: 76870; 81003; 96372; 99284; J0696; Q0144

== ENCOUNTER 2018-10-24 04:35 | Emergency (ER) | payer MEDICARE, MEDICAID ==
[~2018-10-24] VITALS: Ht 175.3 cm; Wt 79.4 kg
[2018-10-24 04:55] VITALS: BP 204/94
--- NOTE | 2018-10-24 04:55 | NUR ---
ER Nurse Note: Pt coming from home c/o bleeding in stool since 10/23. Pt stated this is the first time having bloody stools. Pt states he has cramping, 8/10 pain non radiating. Pt denies trauma, abnormal ingestion, no recent travels. Pt a&ox4, no signs of distress. Labs drawn and sent to lab;awaiting results. Will continue to montior.
[2018-10-24] MEDS ORDERED: Isovue-300 100ml vial INJ PRN (05:15)
[2018-10-24 05:30] LABS: APPEARANCE,URINE CLEAR; BILIRUBIN, URINE NEGATIVE (NEGATIVE); COLOR,URINE PALE YELLOW; GLUCOSE, URINE (UA) NEGATIVE (NEGATIVE); KETONES,URINE NEGATIVE (NEGATIVE); LEUKOCYTE ESTERASE ,URINE 1+ (NEGATIVE); NITRITE,URINE NEGATIVE (NEGATIVE); PH,URINE 5 (4.5-8.0); PROTEIN,URINE NEGATIVE (NEGATIVE); UROBILINOGEN,URINE NORMAL MG/DL (0.0-1.0)
[2018-10-24 05:31] LABS: EOSINOPHILS % (AUTO) 2.1 % (0.0-3.0); HEMATOCRIT 38.3 % (42.0-52.0); LYMPHOCYTES % (AUTO) 29.3 % (20.0-45.0); MEAN CORPUSCULAR VOLUME 88 FL (80-99); MONOCYTES % (AUTO) 6.8 % (1.0-10.0); NEUTROPHILS % (AUTO) 60.8 % (45.0-75.0); PLATELET COUNT 301 K/UL (150-450); RED BLOOD COUNT 4.33 M/UL (4.70-6.10); RED CELL DISTRIBUTION WIDTH 13.5 % (11.6-14.8); WHITE BLOOD COUNT 8.4 K/UL (4.8-10.8)
[2018-10-24] MEDS ORDERED: Dicyclomine HCl 10mg/5ml oral soln ORAL ONE (05:45)
[2018-10-24] MEDS ORDERED: Morphine Sulfate 4mg/ml Inj (IV USE ONLY) IVP ONE (05:45)
[2018-10-24 05:46] LABS: ANION GAP 8 mmol/L (5-15); BLOOD UREA NITROGEN 9 mg/dL (7-18); CALCIUM 8.5 MG/DL (8.5-10.1); CARBON DIOXIDE 27 MMOL/L (21-32); CHLORIDE 105 MMOL/L (98-107); CREATININE 1.2 MG/DL (0.55-1.30); POTASSIUM 3.7 MMOL/L (3.5-5.1); SODIUM 140 MMOL/L (136-145)
--- NOTE | 2018-10-24 05:48 | NUR ---
ER Nurse Note: Pt finished oral contrast. Awaiting CT. Pt recieved pain meds; tolerated well. Pt relaxed, cooperative. Will continnue to monitor.
[2018-10-24 05:49] LABS: ALANINE AMINOTRANSFERASE 17 U/L (12-78); ALBUMIN 3.3 G/DL (3.4-5.0); ALBUMIN/GLOBULIN RATIO 0.8 (1.0-2.7); ALKALINE PHOSPHATASE 78 U/L (46-116); ASPARTATE AMINO TRANSFERASE 14 U/L (15-37); BILIRUBIN,TOTAL 0.5 MG/DL (0.2-1.0)
[2018-10-24 05:56] VITALS: BP 176/91
--- NOTE | 2018-10-24 06:27 | Emergency Room Report ---
History of Present Illness General Chief Complaint: Gastrointestinal Bleed Source: Patient (Nahid Bedoya MD) Present Illness HPI 63-year-old male presents ED for evaluation. Complaining of lower abdominal pain and blood in stool 1 day. Pain is cramping, 6 out of 10, nonradiating. Denies fevers or chills. Denies any blood thinners. No other aggravating relieving factors. Denies any other associated symptoms (Nahid Bedoya MD) Allergies: Coded Allergies: No Known Allergies (Unverified , 12/13/15) Patient History Past Medical History: HTN Past Surgical History: none Pertinent Family History: none Social History: Denies: smoking, alcohol use, drug use Immunizations: UTD Reviewed Nursing Documentation: PMH: Agreed; PSxH: Agreed (Nahid Bedoya MD) Nursing Documentation-PMH Past Medical History: No History, Except For Hx Cardiac Problems: No Hx Hypertension: Yes Hx Pacemaker: No Hx Asthma: No Hx COPD: No Hx Diabetes: No Hx Cancer: No Hx Gastrointestinal Problems: No Hx Dialysis: No Hx Neurological Problems: No Hx Cerebrovascular Accident: No Hx Seizures: No (Nahid Bedoya MD) Review of Systems All Other Systems: negative except mentioned in HPI (Nahid Bedoya MD) Physical Exam Vital Signs Date Time Temp Pulse Resp B/P (MAP) Pulse Ox O2 Delivery O2 Flow Rate FiO2 10/24/18 04:44 97.9 80 12 94 Room Air 10/24/18 04:55 204/94 Sp02 EP Interpretation: reviewed, normal General Appearance: no apparent distress, alert, GCS 15, non-toxic Head: normocephalic, atraumatic Eyes: bilateral eye normal inspection, bilateral eye PERRL ENT: hearing grossly normal, normal pharynx, no angioedema, normal voice Neck: full range of motion, supple/symm/no masses Respiratory: chest non-tender, lungs clear, normal breath sounds, speaking full sentences Cardiovascular #1: regular rate, rhythm, no edema Cardiovascular #2: 2+ carotid (R), 2+ carotid (L), 2+ radial (R), 2+ radial (L) , 2+ dorsalis pedis (R), 2+ dorsalis pedis (L) Gastrointestinal: normal bowel sounds, soft, non-distended, no guarding, no rebound, tenderness Rectal: deferred Genitourinary: normal inspection, no CVA tenderness Musculoskeletal: back normal, gait/station normal, normal range of motion, non- tender Neurologic: alert, oriented x3, responsive, motor strength/tone normal, sensory intact, speech normal Psychiatric: judgement/insight normal, memory normal, mood/affect normal, no suicidal/homicidal ideation Reflexes: 3+ bicep (R), 3+ bicep (L), 3+ tricep (R), 3+ tricep (L), 3+ knee (R) , 3+ knee (L) Skin: normal color, no rash, warm/dry, well hydrated Lymphatic: no adenopathy (Nahid Bedoya MD) Medical Decision Making Diagnostic Impression: Primary Impression: Intussusception Additional Impression: Renal mass Labs Test 10/24/18 04:56 White Blood Count 8.4 K/UL (4.8-10.8) Red Blood Count 4.33 M/UL (4.70-6.10) Hemoglobin 13.0 G/DL (14.2-18.0) Hematocrit 38.3 % (42.0-52.0) Mean Corpuscular Volume 88 FL (80-99) Mean Corpuscular Hemoglobin 30.0 PG (27.0-31.0) Mean Corpuscular Hemoglobin Concent 33.9 G/DL (32.0-36.0) Red Cell Distribution Width 13.5 % (11.6-14.8) Platelet Count 301 K/UL (150-450) Mean Platelet Volume 6.0 FL (6.5-10.1) Neutrophils (%) (Auto) 60.8 % (45.0-75.0) Lymphocytes (%) (Auto) 29.3 % (20.0-45.0) Monocytes (%) (Auto) 6.8 % (1.0-10.0) Eosinophils (%) (Auto) 2.1 % (0.0-3.0) Basophils (%) (Auto) 1.0 % (0.0-2.0) Urine Color Pale yellow Urine Appearance Clear Urine pH 5 (4.5-8.0) Urine Specific [place] 1.015 (1.005-1.035) Urine Protein Negative (NEGATIVE) Urine Glucose (UA) Negative (NEGATIVE) Urine Ketones Negative (NEGATIVE) Urine Blood Negative (NEGATIVE) Urine Nitrite Negative (NEGATIVE) Urine Bilirubin Negative (NEGATIVE) Urine Urobilinogen Normal MG/DL (0.0-1.0) Urine Leukocyte Esterase 1+ (NEGATIVE) Urine RBC 0 /HPF (0 - 0) Urine WBC 0-2 /HPF (0 - 0) Urine Squamous Epithelial Cells Occasional /LPF Urine Bacteria Occasional /HPF (NONE) Sodium Level 140 MMOL/L (136-145) Potassium Level 3.7 MMOL/L (3.5-5.1) Chloride Level 105 MMOL/L (98-107) Carbon Dioxide Level 27 MMOL/L (21-32) Anion Gap 8 mmol/L (5-15) Blood Urea Nitrogen 9 mg/dL (7-18) Creatinine 1.2 MG/DL (0.55-1.30) Estimat Glomerular Filtration Rate > 60 mL/min (>60) Glucose Level 96 MG/DL (74-106) Calcium Level 8.5 MG/DL (8.5-10.1) Total Bilirubin 0.5 MG/DL (0.2-1.0) Aspartate Amino Transf (AST/SGOT) 14 U/L (15-37) Alanine Aminotransferase (ALT/SGPT) 17 U/L (12-78) Alkaline Phosphatase 78 U/L (46-116) Total Protein 7.2 G/DL (6.4-8.2) Albumin 3.3 G/DL (3.4-5.0) Globulin 3.9 g/dL Albumin/Globulin Ratio 0.8 (1.0-2.7) Lipase 95 U/L (73-393) (Nahid Bedoya MD) ER Course Please see above note. CT + intussusception. Also L renal tumor. Admit med. Accepted at [facility]. Patient "need to take care of things at home". Told of risk of due to obstruction. Also told I believe he might have cancer. He still insists on leaving AMA. (Mik Polk MD) CT/MRI/US Diagnostic Results CT/MRI/US Diagnostic Results : Imaging Test Ordered: CT abd/pelvis Impression IMPRESSION: Evidence of a colonic intussusception involving the hepatic flexure. Suspect underlying mass. Further evaluation recommended. No evidence of associated bowel obstruction or perforation. Heterogeneous enhancing bilateral masses arising from or adjacent to the kidneys. 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 This may be sporadic or associated with a hereditary syndrome such as von Hippel-Lindau or tuberous sclerosis. Correlate clinically. At least 2 hypodensities within the liver nonspecific. Prostatic disease not excluded. Posterior basal atelectasis. 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 Right dynamic hip screw. (Mik Polk MD) Last Vital Signs Date Time Temp Pulse Resp B/P (MAP) Pulse Ox O2 Delivery O2 Flow Rate FiO2 10/24/18 05:56 97.9 76 20 176/91 99 Room Air (Nahid Bedoya MD) Last Vital Signs Date Time Temp Pulse Resp B/P (MAP) Pulse Ox O2 Delivery O2 Flow Rate FiO2 10/24/18 10:17 72 20 202/89 97 Room Air 10/24/18 07:09 97.9 Status: improved (Mik Polk MD) Disposition: AGAINST MEDICAL ADVICE Condition: Serious Nahid Bedoya MD October 24, 2018 06:27 Mik Polk MD October 24, 2018 09:32
--- NOTE | 2018-10-24 07:09 | NUR ---
ER Nurse Note: Pt calm, cooperative, a&ox4, VSS, no signs of distress. Pt completed oral contrast, radioloist aware. All orders completed per ERMD orders and pending CT. All safety measures met; will endorse to oncoming shift for continuity of care.
[2018-10-24 08:09] VITALS: BP 177/80
--- NOTE | 2018-10-24 08:19 | NUR ---
Pt off the floor to CT.
[2018-10-24] MEDS ORDERED: Lisinopril 10mg tab ORAL ONE (09:00)
--- NOTE | 2018-10-24 09:15 | NUR ---
ED Nurse Note: pt's BP 184/88, Dr Polk notified, given 40mg Lisinopril per order. Will continue to monitor.
--- NOTE | 2018-10-24 09:48 | Diagnostic Imaging Report ---
Indication: Abdominal pain Technique: Continuous helical transaxial imaging of the abdomen and pelvis was obtained from the lung bases to the pubic symphysis during intravenous contrast administration. Coronal 2-D reformats were also obtained. Study obtained in a Siemens sensation [address] Automatic Exposure Control was utilized. Total Dose length Product (DLP): 656.[address] Dose Index Volume (CTDIvol): 12.1 mGy Comparison: None Findings: In the hepatic flexure of the colon, there is an intussusception demonstrated, suspected to be secondary to underlying mass which may be either within the wall of the colon or adjacent to the colon. There is no pneumatosis. There is no free air or evidence of perforation. There is no evidence of bowel obstruction. There is an enhancing mass in the lateral part of the left kidney measuring approximately 5.5 x 4.6 cm. This is consistent with a tumor and is likely renal cell carcinoma. On the right side there is an exophytic enhancing mass measuring 4.2 cm probably arising from the right kidney with similar appearance and enhancement characteristics as the mass in the left side. Both adrenal glands are visualized and do not appear to be involved. Theoretically the right suprarenal anterior mass could be arising from the adrenal gland but the suspect more likely that the tumor is arising from the kidney. Minimal posterior basal atelectasis demonstrated. There is a area of low attenuation adjacent to the falciform ligament within the liver likely focal fat. Portal vein enhances normally. The pancreas and gallbladder are unremarkable. Nonspecific hypodensity 1.6 cm within the right lobe of the liver. This could be a hemangioma. Other possibilities not excluded. Hypodensity also noted in the area of the falciform ligament. This could be a second hemangioma. Other possibilities not excluded. Aortoiliac calcifications are present. There is a small fusiform aneurysm involving the lower abdominal aorta measuring 3.4 cm. There is no evidence of bowel obstruction. The bladder is unremarkable. There is a right dynamic hip screw. No free fluid identified. No adenopathy identified. IMPRESSION: Evidence of a colonic intussusception involving the hepatic flexure. Suspect underlying mass. Further evaluation recommended. No evidence of associated bowel obstruction or perforation. Heterogeneous enhancing bilateral masses arising from or adjacent to the kidneys. 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 This may be sporadic or associated with a hereditary syndrome such as von Hippel-Lindau or tuberous sclerosis. Correlate clinically. At least 2 hypodensities within the liver nonspecific. Prostatic disease not excluded. Posterior basal atelectasis. 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 Right dynamic hip screw. Significant findings on this examination were discussed via telephone with Dr. Polk in the emergency department at 9:30 AM 10/24/[address] scanner at [facility] is accredited by the [employer] and the scans are performed using dose optimization techniques as appropriate to a performed exam including Automatic Exposure control.
[2018-10-24 10:14] VITALS: BP 202/89
--- NOTE | 2018-10-24 10:15 | NUR ---
ER DISCHARGE NOTE: Patient left AMA per ERMD, pt is aox4, on room air, with stable vital signs. pt was given instructions to go to [facility] for surgery or to come back here if needed, Dr. Pokl explained the risks of leaving the hospital at this time. pt was able to verbalize understanding, pt id band and iv site removed without complications. pt is able to ambulate with steady gait. pt took all belongings.
[2018-10-24 10:17] VITALS: BP 202/89
== END 2018-10-24 10:20 | disposition home or self-care (01) ==
LOC: EMR 07:10 → EDBEDREQ 09:35 → CANBEDREQ 10:16 → EMR 10:20
DX: N28.89 Other specified disorders of kidney and ureter (principal); K56.1 Intussusception; I10 Essential (primary) hypertension
CPT/HCPCS: 36415; 74177; 80053; 81003; 83690; 85025; 96361; 96374; 99284; J2270; Q9967

== ENCOUNTER 2019-01-06 02:08 | Emergency (ER) | payer MEDICARE, MEDICAID ==
[~2019-01-06] VITALS: Ht 172.7 cm; Wt 77.1 kg
[2019-01-06 02:10] VITALS: BP 138/88
--- NOTE | 2019-01-06 02:17 | NUR ---
ED Nurse Note: Pt ambulated from home c/o L arm pain, pt was just discharged from [facility] last fri after being dx with a blood clot in his L arm. Pt states he thinks it is the same issue.
[2019-01-06] MEDS ORDERED: Ketorolac 30mg Inj IV ONE (02:30)
--- NOTE | 2019-01-06 02:31 | Emergency Room Report ---
History of Present Illness General Chief Complaint: Pain Source: Patient Present Illness HPI 63-year-old male presents with left armpit pain, patient reports that he had was diagnosed with a blood clot 2 weeks prior to arrival, he had a PICC line in place that was then subsequently removed secondary to blood clot, patient endorses a sharp left armpit pain, aggravated with movement alleviated with rest , he denies any chest pain, no shortness of breath, no dyspnea on exertion, patient was concerned because he continues to have left armpit pain. He states he is current taking Eliquis for blood clot he is wondering why the blood clot has not gone away yet. Patient wants to know if he can have something stronger for dissolving the clot. Allergies: Coded Allergies: No Known Allergies (Unverified , 12/13/15) Patient History Past Medical History: see triage record Reviewed Nursing Documentation: PMH: Agreed; PSxH: Agreed Nursing Documentation-PMH Past Medical History: No History, Except For Hx Cardiac Problems: No Hx Hypertension: Yes Hx Pacemaker: No Hx Asthma: No Hx COPD: No Hx Diabetes: No Hx Cancer: No Hx Gastrointestinal Problems: No Hx Dialysis: No Hx Neurological Problems: No Hx Cerebrovascular Accident: No Hx Seizures: No Review of Systems Respiratory: Denies: orthopnea, shortness of breath Cardiovascular: Denies: chest pain Musculoskeletal: Reports: muscle pain All Other Systems: negative except mentioned in HPI Physical Exam Vital Signs Date Time Temp Pulse Resp B/P (MAP) Pulse Ox O2 Delivery O2 Flow Rate FiO2 01/06/19 02:11 98.1 87 18 134/74 (94) 98 Room Air Sp02 EP Interpretation: reviewed, normal General Appearance: well appearing, no apparent distress, alert Head: normocephalic, atraumatic Eyes: bilateral eye PERRL, bilateral eye EOMI ENT: uvula midline, moist mucus membranes Neck: supple, thyroid normal, supple/symm/no masses Respiratory: lungs clear, no respiratory distress, no retraction, no accessory muscle use Cardiovascular #1: normal peripheral pulses, regular rate, rhythm, no edema, no gallop, no murmur Gastrointestinal: non tender, soft, no guarding, no rebound Musculoskeletal: normal inspection Neurologic: alert, oriented x3 Psychiatric: mood/affect normal Skin: warm/dry Medical Decision Making Diagnostic Impression: Primary Impression: Arm vein blood clot Additional Impressions: DVT of left axillary vein, chronic Anemia ER Course 63-year-old male with known blood clot in the left upper arm, [id number] ultrasound shows a clot still persisting, patient in no acute distress, not hypoxic, not shortness of breath, patient counseled that it will take time for the blood clot to dissolve with Eliquis, he states he has an appointment his primary care doctor to determine if he needs to undergo thrombectomy with a surgeon, patient only endorses left armpit pain, patient was counseled that he does not require a clot buster at this moment, strict return precautions for pulmonary embolism, shortness of breath were given, joint decision-making was made with patient to go home. Patient also has reduced hemoglobin from previous, will start patient on iron, patient may have a mixed picture secondary to Eliquis, but he also has osteomyelitis and is currently being treated with IV antibiotics, he may have anemia secondary to occult bleed versus anemia of chronic disease. on reevaluation states he has some black stools occasionally over the past 2 weeks intermittently he denies any lightheadedness, chest pain or shortness of breath , patient feels comfortable going home he states he will follow-up with his PCP in 24 to 48 hours. Has an appointment with his doctor 01/07/2019 Patient given proper expectations, patient understands, states he will follow- up with his primary care doctor Martine report ran, previous prescription 12/08/2018 Laboratory Tests Test 01/06/19 02:50 White Blood Count 9.6 K/UL (4.8-10.8) Red Blood Count 4.06 M/UL (4.70-6.10) L Hemoglobin 11.7 G/DL (14.2-18.0) L Hematocrit 35.1 % (42.0-52.0) L Mean Corpuscular Volume 86 FL (80-99) Mean Corpuscular Hemoglobin 28.9 PG (27.0-31.0) Mean Corpuscular Hemoglobin Concent 33.5 G/DL (32.0-36.0) Red Cell Distribution Width 12.4 % (11.6-14.8) Platelet Count 428 K/UL (150-450) Mean Platelet Volume 4.8 FL (6.5-10.1) L Neutrophils (%) (Auto) 58.1 % (45.0-75.0) Lymphocytes (%) (Auto) 30.1 % (20.0-45.0) Monocytes (%) (Auto) 8.7 % (1.0-10.0) Eosinophils (%) (Auto) 2.4 % (0.0-3.0) Basophils (%) (Auto) 0.7 % (0.0-2.0) Prothrombin Time 11.0 SEC (9.30-11.50) Prothrombin Time INR 1.0 (0.9-1.1) PTT 34 SEC (23-33) H Sodium Level 134 MMOL/L (136-145) L Potassium Level 3.0 MMOL/L (3.5-5.1) L Chloride Level 99 MMOL/L (98-107) Carbon Dioxide Level 29 MMOL/L (21-32) Anion Gap 6 mmol/L (5-15) Blood Urea Nitrogen 16 mg/dL (7-18) Creatinine 1.2 MG/DL (0.55-1.30) Estimate Glomerular Filtration Rate > 60 mL/min (>60) Glucose Level 94 MG/DL (74-106) Calcium Level 9.0 MG/DL (8.5-10.1) Total Bilirubin 0.3 MG/DL (0.2-1.0) Aspartate Amino Transferase (AST) 14 U/L (15-37) L Alanine Aminotransferase (ALT) 10 U/L (12-78) L Alkaline Phosphatase 60 U/L (46-116) Total Protein 7.3 G/DL (6.4-8.2) Albumin 3.1 G/DL (3.4-5.0) L Globulin 4.2 g/dL Albumin/Globulin Ratio 0.7 (1.0-2.7) L EKG Diagnostic Results EKG Time: 02:33 EP Interpretation: NSR, rate 71, QTc 449, no acute ST elevations, normal axis Rate: normal Rhythm: NSR ST Segments: no acute changes Other Impression No evidence of right heart strain Chest X-Ray Diagnostic Results Chest X-Ray Diagnostic Results : Chest X-Ray Ordered: Yes # of Views/Limited/Complete: 1 View Indication: Other - Preop EP Interpretation: Yes Interpretation: no acute cardiopulmonary disease Impression: No acute disease Electronically Signed by: Rome Ortiz MD Last Vital Signs Date Time Temp Pulse Resp B/P (MAP) Pulse Ox O2 Delivery O2 Flow Rate FiO2 01/06/19 02:11 98.1 87 18 134/74 (94) 98 Room Air Disposition: HOME, SELF-CARE Condition: Stable Scripts Ferrous Sulfate (FERROUS SULFATE) 325 Mg Tablet. 325 MG ORAL BID, #30 TAB 0 Refills Prov: Rome Ortiz MD 01/06/19 Hydrocodone Bit/Acetaminophen 5-325* (NORCO 5-325*) 1 Each Tablet 1 TAB ORAL Q6H PRN for For Pain, #12 TAB 0 Refills Prov: Rome Ortiz MD 01/06/19 Referrals: [facility] Patient Instructions: Anemia, Nonspecific, Deep Vein Thrombosis, Embolectomy and Thrombectomy Additional Instructions: The patient was provided with discharge instructions, notified to follow-up with a primary care doctor and or specialist in the next 24-48 hours, and to return to the ED if they have worsening of their symptoms. Please note that this report is being documented using [employer] technology. This can lead to erroneous entry secondary to incorrect interpretation by the dictating instrument. Please follow-up with your primary doctor to determine whether you need embolectomy for removal of the blood clot in your left arm, it will take time for the blood clot to slowly dissolve over time, you are currently on appropriate therapy which is Eliquis, there are no indications for TPA at this moment, if he becomes short of breath or have chest pain please return to the emergency room. Rome Ortiz MD Jan 06, 2019 02:31
[2019-01-06 03:08] LABS: BASOPHILS % (AUTO) 0.7 % (0.0-2.0); EOSINOPHILS % (AUTO) 2.4 % (0.0-3.0); HEMATOCRIT 35.1 % (42.0-52.0); HEMOGLOBIN 11.7 G/DL (14.2-18.0); LYMPHOCYTES % (AUTO) 30.1 % (20.0-45.0); MEAN CORPUSCULAR VOLUME 86 FL (80-99); MONOCYTES % (AUTO) 8.7 % (1.0-10.0); NEUTROPHILS % (AUTO) 58.1 % (45.0-75.0); PLATELET COUNT 428 K/UL (150-450); RED BLOOD COUNT 4.06 M/UL (4.70-6.10); RED CELL DISTRIBUTION WIDTH 12.4 % (11.6-14.8); WHITE BLOOD COUNT 9.6 K/UL (4.8-10.8)
[2019-01-06 03:10] LABS: ANION GAP 6 mmol/L (5-15); BLOOD UREA NITROGEN 16 mg/dL (7-18); CARBON DIOXIDE 29 MMOL/L (21-32); CHLORIDE 99 MMOL/L (98-107); CREATININE 1.2 MG/DL (0.55-1.30); SODIUM 134 MMOL/L (136-145)
[2019-01-06 03:15] LABS: ALANINE AMINOTRANSFERASE 10 U/L (12-78); ALBUMIN 3.1 G/DL (3.4-5.0); ALBUMIN/GLOBULIN RATIO 0.7 (1.0-2.7); ALKALINE PHOSPHATASE 60 U/L (46-116); ASPARTATE AMINO TRANSFERASE 14 U/L (15-37); BILIRUBIN,TOTAL 0.3 MG/DL (0.2-1.0)
[2019-01-06] MEDS ORDERED: NORCO 5-325 TA1 EACH ORAL (03:16)
[2019-01-06] MEDS ORDERED: FERROUS SULFAT325 M2 ORAL (03:19)
[2019-01-06 03:45] VITALS: BP 134/74
--- NOTE | 2019-01-06 03:45 | NUR ---
ER DISCHARGE NOTE: Patient is cleared to be discharged per ERMD, pt is aox4, on room air, with stable vital signs. pt was given dc and prescription instructions, pt was able to verbalize understanding, pt id band and iv site removed without complications. pt is able to ambulate with steady gait. pt took all belongings.
--- NOTE | 2019-01-06 10:13 | Diagnostic Imaging Report ---
Indication: Dyspnea Comparison: 07/05/2018 A single view chest radiograph was obtained. Findings: No definite infiltrate or pulmonary vascular congestion identified. The heart is borderline enlarged. The aorta is mildly enlarged consistent with atherosclerotic vascular disease. The bones are osteopenic. Impression: No acute disease
== END 2019-01-06 03:45 | disposition home or self-care (01) ==
LOC: EMR 02:31
DX: I82.722 Chronic embolism and thrombosis of deep veins of left upper extremity (principal); I10 Essential (primary) hypertension; Z79.01 Long term (current) use of anticoagulants; D64.9 Anemia, unspecified
CPT/HCPCS: 36415; 71045; 80053; 85025; 85610; 85730; 93005; 96374; 96375; 99284; J1885; J2405; J8499

== ENCOUNTER 2019-02-09 22:29 | Emergency (ER) | payer MEDICARE, MEDICAID ==
[~2019-02-09] VITALS: Ht 175.3 cm; Wt 79.8 kg
[~2019-02-09 22:29] MED LIST changes: +FERROUS SULFAT325 M2 ORAL; +NORCO 5-325 TA1 EACH ORAL
[2019-02-09] MEDS ORDERED: ADALAT10 MG ORAL (22:34)
[2019-02-09] MEDS ORDERED: LISINOPRIL5 MG ORAL (22:34)
[2019-02-09 22:36] VITALS: BP 132/81
--- NOTE | 2019-02-09 22:36 | NUR ---
ED Nurse Note: pt walked in to ED via crutches, C/O headache 02/16 and pain to left armpit area. pt is alert x4.
[2019-02-09] MEDS ORDERED: DiphenhydrAMINE 50mg/ml Inj IVP ONE (23:00)
[2019-02-09] MEDS ORDERED: Ketorolac 30mg Inj IV ONE (23:00)
[2019-02-09] MEDS ORDERED: Metoclopramide 10mg/2ml Inj IVP ONE (23:00)
--- NOTE | 2019-02-09 23:02 | NUR ---
ED Nurse Note: pt going down for CT. blood drawn. sent to lab
--- NOTE | 2019-02-09 23:25 | Diagnostic Imaging Report ---
Indications: Headache Technique: Spiral acquisitions obtained through the brain. Angled axial and coronal 5 x 5 mm slices were reconstructed. Total dose length product 1396.47 mGycm. CTDI vol(s) 70.38 mGy. Dose reduction achieved using automated exposure control Comparison: None. Findings: There is mild age-related enlargement of the ventricles and extra axial CSF spaces. There is periventricular deep white matter low-attenuation consistent with chronic microvascular ischemic changes. No acute intracranial hemorrhage or edema, mass effect, nor midline shift. There is an old lacunar infarct in the left posterior stauffer radiata. Visualized orbits and sinuses are unremarkable. The mastoids are clear. The calvarium is intact. 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 The CT scanner at [facility] is accredited by the [employer] and the scans are performed using protocols designed to limit radiation exposure to as low as reasonably achievable to attain images of sufficient resolution adequate for diagnostic evaluation.
[2019-02-09 23:30] LABS: ANION GAP 7 mmol/L (5-15); BLOOD UREA NITROGEN 20 mg/dL (7-18); CALCIUM 8.7 MG/DL (8.5-10.1); CARBON DIOXIDE 28 MMOL/L (21-32); CHLORIDE 108 MMOL/L (98-107); CREATININE 1.4 MG/DL (0.55-1.30); EOSINOPHILS % (AUTO) 1.9 % (0.0-3.0); HEMATOCRIT 35.3 % (42.0-52.0); HEMOGLOBIN 11.8 G/DL (14.2-18.0); LYMPHOCYTES % (AUTO) 28.5 % (20.0-45.0); MEAN CORPUSCULAR VOLUME 90 FL (80-99); MONOCYTES % (AUTO) 7.9 % (1.0-10.0); NEUTROPHILS % (AUTO) 60.6 % (45.0-75.0); PLATELET COUNT 328 K/UL (150-450); POTASSIUM 3.7 MMOL/L (3.5-5.1); RED BLOOD COUNT 3.92 M/UL (4.70-6.10); RED CELL DISTRIBUTION WIDTH 14.5 % (11.6-14.8); SODIUM 143 MMOL/L (136-145); WHITE BLOOD COUNT 10.5 K/UL (4.8-10.8)
--- NOTE | 2019-02-09 23:40 | NUR ---
ED Nurse Note: venous deplex being performed at bedside
--- NOTE | 2019-02-09 23:44 | Emergency Room Report ---
History of Present Illness General Chief Complaint: Headache Source: Patient Present Illness HPI This is a 63-year-old male with a history of hypertension. He also has osteomyelitis of his right lower extremity. He had a PICC line for IV antibiotics. Subsequently developed a DVT in the left arm. He was on Eliquis. This was stopped last week. PICC line was also removed. He is no longer on IV antibiotics. He presents with chief complaint of headache and also left arm pain. Headache started today. Left-sided. Radiating to the back. No nausea no vomiting but no fever chills. Left arm pain is chronic in nature. Nothing made it better nothing made it worse. Denies any other complaint. No shortness of breath. No chest pain. Allergies: Coded Allergies: No Known Allergies (Unverified , 12/13/15) Patient History Past Medical History: see triage record, old chart reviewed, HTN Past Surgical History: other Pertinent Family History: none Social History: Denies: smoking Immunizations: other Reviewed Nursing Documentation: PMH: Agreed; PSxH: Agreed Nursing Documentation-PMH Past Medical History: No History, Except For Hx Cardiac Problems: No Hx Hypertension: Yes Hx Pacemaker: No Hx Asthma: No Hx COPD: No Hx Diabetes: No Hx Cancer: No Hx Gastrointestinal Problems: No Hx Dialysis: No Hx Neurological Problems: No Hx Cerebrovascular Accident: No Hx Seizures: No Review of Systems Eye: Denies: eye pain, blurred vision ENT: Denies: ear pain, nose congestion, throat swelling Respiratory: Denies: cough, shortness of breath Cardiovascular: Denies: chest pain, palpitations Gastrointestinal: Denies: abdominal pain, diarrhea, nausea, vomiting Musculoskeletal: Denies: back pain, joint pain Skin: Denies: rash Neurological: Reports: headache; Denies: numbness Endocrine: Denies: increased thirst, increased urine Hematologic/Lymphatic: Denies: easy bruising All Other Systems: negative except mentioned in HPI Physical Exam Vital Signs Date Time Temp Pulse Resp B/P (MAP) Pulse Ox O2 Delivery O2 Flow Rate FiO2 02/09/19 22:30 98.4 92 18 132/81 (98) 96 Room Air Vitals normal Sp02 EP Interpretation: reviewed, normal General Appearance: well appearing, no apparent distress, alert Head: normocephalic, atraumatic Eyes: bilateral eye PERRL, bilateral eye EOMI ENT: hearing grossly normal, normal pharynx Neck: full range of motion, supple, no meningismus Respiratory: chest non-tender, lungs clear, normal breath sounds Cardiovascular #1: regular rate, rhythm, no murmur Gastrointestinal: normal bowel sounds, non tender, no mass, no organomegaly, no bruit, non-distended Musculoskeletal: back normal, gait/station normal, normal range of motion Psychiatric: mood/affect normal Medical Decision Making Diagnostic Impression: Primary Impression: Headache Qualified Codes: G44.209 - Tension-type headache, unspecified, not intractable Additional Impression: Left upper arm pain ER Course Patient presents with headache. No evidence of any bleed, meningitis or neoplastic process. Left arm pain is a chronic issue from his DVT. Ultrasound from today is negative for acute DVT. Will discharge home. CT/MRI/US Diagnostic Results CT/MRI/US Diagnostic Results : Imaging Test Ordered: CT head Impression Negative per radiologist Last Vital Signs Date Time Temp Pulse Resp B/P (MAP) Pulse Ox O2 Delivery O2 Flow Rate FiO2 02/09/19 22:36 98.4 76 18 132/81 97 Room Air Status: improved Disposition: HOME, SELF-CARE Condition: Stable Scripts Ibuprofen* (MOTRIN*) 600 Mg Tablet 600 MG ORAL THREE TIMES A DAY, #30 TAB 0 Refills Prov: Malcom Copeland MD 02/10/19 Patient Instructions: General Headache Without Cause Additional Instructions: Follow-up with your doctor in 7 days. Return if worse. Malcom Copeland MD Feb 09, 2019 23:43
[2019-02-10] MEDS ORDERED: IBUPROFEN600 MG ORAL (00:05)
--- NOTE | 2019-02-10 00:05 | Diagnostic Imaging Report ---
Indication: Left arm pain Technique: Grayscale and duplex images of the left upper extremity veins Comparison: none Findings: Grayscale and duplex images of the left upper extremity veins demonstrate no evidence of intraluminal thrombus. Normal phasic Doppler waveforms. Normal compressibility. Impression: Negative for evidence of left upper extremity deep venous thrombosis This agrees with the preliminary interpretation provided overnight by [employer] [facility]. Please note, however, that the preliminary report is titled "US venous right upper extremity." This is incorrect. The exam is of the left upper extremity
[2019-02-10 00:11] VITALS: BP 130/84
--- NOTE | 2019-02-10 00:11 | NUR ---
ER DISCHARGE NOTE: Patient is cleared to be discharged per ERMD, pt is aox4, on room air, with stable vital signs. pt was given dc and prescription instructions, pt was able to verbalize understanding, pt id band and iv site removed without complications. pt is able to ambulate with the use of crutches. pt took all belongings.
== END 2019-02-10 00:11 | disposition home or self-care (01) ==
LOC: EMR 22:51
DX: G44.209 Tension-type headache, unspecified, not intractable (principal); M79.622 Pain in left upper arm; I10 Essential (primary) hypertension; M86.9 Osteomyelitis, unspecified; Z86.718 Personal history of other venous thrombosis and embolism; Z79.01 Long term (current) use of anticoagulants
CPT/HCPCS: 36415; 70450; 80048; 85025; 93971; 96374; 96375; 99284; J1200; J1885; J2765

== ENCOUNTER 2019-08-25 13:26 | Emergency (ER) | payer MEDICARE, MEDICAID ==
[~2019-08-25] VITALS: Ht 175.3 cm; Wt 77.1 kg
[~2019-08-25 13:26] MED LIST changes: +ADALAT10 MG ORAL; +IBUPROFEN600 MG ORAL; +LISINOPRIL5 MG ORAL
--- NOTE | 2019-08-25 14:00 | NUR ---
ED Nurse Note: Pt walked into ED w/ crutches or R foot abscess. Pt is alert and orientesd and amb w/ assist. Pt foot slightly swollen, pedal pulses present. Pt is alert and orientedx4. Pt is smiling and happy. R foot pain 6/10.
--- NOTE | 2019-08-25 14:07 | Emergency Room Report ---
History of Present Illness General Chief Complaint: Skin Rash/Abscess Source: Patient Present Illness HPI 63-year-old male with no significant past medical history other than chronic foot ulcers here complaining of worsening of foot ulcer in the right foot. Has a [employer] to see however has an upcoming appointment in a week. Denies any fever and chills, shortness of breath, chest pain, recent travel history. Has not taken medication for symptom relief. No drainage noted. Also is not warm to touch. Not open. COVID-19 risk:Travel to affect: No Has patient experienced stauffer: No Allergies: Coded Allergies: No Known Allergies (Unverified , 12/13/15) Patient History Past Medical History: see triage record Past Surgical History: none Pertinent Family History: none Immunizations: UTD Reviewed Nursing Documentation: PMH: Agreed; PSxH: Agreed Nursing Documentation-PMH Hx Cardiac Problems: No Hx Hypertension: Yes Hx Pacemaker: No Hx Asthma: No Hx COPD: No Hx Diabetes: No Hx Cancer: No Hx Gastrointestinal Problems: No Hx Dialysis: No Hx Neurological Problems: No Hx Cerebrovascular Accident: No Hx Seizures: No Review of Systems All Other Systems: negative except mentioned in HPI Physical Exam Vital Signs Date Time Temp Pulse Resp B/P (MAP) Pulse Ox O2 Delivery O2 Flow Rate FiO2 08/25/19 13:31 97.9 86 16 133/86 (102) 98 Room Air Sp02 EP Interpretation: reviewed, normal General Appearance: no apparent distress, alert, GCS 15, non-toxic Head: normocephalic, atraumatic Eyes: bilateral eye normal inspection, bilateral eye PERRL ENT: hearing grossly normal, normal pharynx, no angioedema, normal voice Neck: full range of motion, supple, supple/symm/no masses Respiratory: chest non-tender, lungs clear, normal breath sounds, no rhonchi, no wheezing, speaking full sentences Cardiovascular #1: regular rate, rhythm, no edema, no murmur Cardiovascular #2: 2+ dorsalis pedis (R), 2+ dorsalis pedis (L) Gastrointestinal: normal bowel sounds, non tender, soft, non-distended, no guarding, no rebound Genitourinary: no CVA tenderness Musculoskeletal: back normal, no calf tenderness, non-tender Neurologic: alert, motor strength/tone normal, oriented x3, sensory intact, responsive, speech normal Psychiatric: judgement/insight normal, memory normal, mood/affect normal, no suicidal/homicidal ideation Skin: other - Infected foot ulcer right foot Lymphatic: no adenopathy Medical Decision Making PA Attestation All my diagnosis and treatment plans were reviewed ad discussed with my supervising physician Dr. Segura Diagnostic Impression: Primary Impression: Foot ulcer ER Course 63-year-old male with no significant past medical history other than chronic foot ulcers here complaining of worsening of foot ulcer in the right foot. Has a [employer] to see however has an upcoming appointment in a week. Denies any fever and chills, shortness of breath, chest pain, recent travel history. Has not taken medication for symptom relief. No drainage noted. Also is not warm to touch. Not open. Ddx considered but are not limited to : Cellulitis, DVT, superficial infection, abscess, foot ulcer Vital signs: are WNL, pt. is afebrile H&PE are most consistent with: Minimally infected foot ulcer ORDERS: Keflex, Bactrim DS, Motrin ED INTERVENTIONS: Rocephin IM DISCHARGE: At this time pt. is stable for d/c to home. Will provide printed patient care instructions, and any necessary prescriptions. Care plan and follow up instructions have been discussed with the patient prior to discharge. Patient to follow-up with [employer], take medication as directed, if worsening symptoms return to the emergency room Last Vital Signs Date Time Temp Pulse Resp B/P (MAP) Pulse Ox O2 Delivery O2 Flow Rate FiO2 08/25/19 13:31 97.9 86 16 133/86 (102) 98 Room Air Disposition: HOME, SELF-CARE Condition: Stable Scripts Ibuprofen* (MOTRIN*) 600 Mg Tablet 600 MG ORAL Q8H PRN for For Pain, #30 TAB 0 Refills Prov: Jay Orta 08/25/19 Trimethoprim/Sulfamethoxazole 160/800* (BACTRIM DS TABLET*) 1 Each Tablet 1 TAB ORAL TWICE A DAY for 7 Days, #14 TAB Prov: Jay Orta 08/25/19 Cephalexin* (KEFLEX*) 500 Mg Capsule 500 MG ORAL EVERY 6 HOURS for 7 Days, #28 CAP Prov: Jay Orta 08/25/19 Patient Instructions: Skin Ulcer Additional Instructions: Take medication as directed, follow-up with your [employer], if worsening symptoms return to emergency room Jay Orta Aug 25, 2019 14:07
[2019-08-25] MEDS ORDERED: BACTRIM DS TAB1 EAC1 ORAL (14:08)
[2019-08-25] MEDS ORDERED: CEPHALEXIN500 MG ORAL (14:08)
[2019-08-25] MEDS ORDERED: IBUPROFEN600 MG ORAL (14:09)
[2019-08-25] MEDS ORDERED: Lidocaine 1% MPF 10mg/ml 5ml INJ ONE (14:15)
[2019-08-25 14:25] VITALS: BP 133/86
[2019-08-25 14:27] VITALS: BP 20/80
--- NOTE | 2019-08-25 14:29 | NUR ---
discharged home with instruction and rx follow up with pmd
== END 2019-08-25 14:30 | disposition home or self-care (01) ==
LOC: EMR 14:06
DX: L97.519 Non-pressure chronic ulcer of other part of right foot with unspecified severity (principal); I10 Essential (primary) hypertension
CPT/HCPCS: 96372; 96374; 99284; J0696

== ENCOUNTER 2019-09-07 16:32 | Emergency (ER) | payer MEDICARE, MEDICAID ==
[~2019-09-07] VITALS: Ht 175.3 cm; Wt 77.1 kg
[2019-09-07 16:50] VITALS: BP 146/79
--- NOTE | 2019-09-07 17:04 | Emergency Room Report ---
History of Present Illness General Chief Complaint: Back Injury Source: Patient Present Illness HPI Patient presents with complaints of low back pain reports that 5 days ago he helped someone change tires on a car Soon after that started having some low back pain and now even trying to stand causes increased discomfort Denies any neuropathy denies any loss of control of bowel or urination Denies any saddle paresthesia denies any upper back pain denies any other fall or trauma Allergies: Coded Allergies: No Known Allergies (Unverified , 12/13/15) COVID-19 Screening Contact w/high risk pt: No Recent Travel to affected area: No Experienced COVID-19 symptoms?: No Patient History Past Medical History: see triage record Reviewed Nursing Documentation: PMH: Agreed; PSxH: Agreed Nursing Documentation-PMH Past Medical History: No History, Except For Hx Cardiac Problems: No Hx Hypertension: Yes Hx Pacemaker: No Hx Asthma: No Hx COPD: No Hx Diabetes: No Hx Cancer: No Hx Gastrointestinal Problems: No Hx Dialysis: No Hx Neurological Problems: No Hx Cerebrovascular Accident: No Hx Seizures: No Review of Systems All Other Systems: negative except mentioned in HPI Physical Exam Vital Signs Date Time Temp Pulse Resp B/P (MAP) Pulse Ox O2 Delivery O2 Flow Rate FiO2 09/07/19 16:44 98.2 89 17 146/79 (101) 99 Room Air Sp02 EP Interpretation: reviewed, normal General Appearance: well appearing, no apparent distress Head: normocephalic, atraumatic Eyes: bilateral eye PERRL, bilateral eye EOMI ENT: hearing grossly normal, normal pharynx, TMs + canals normal, uvula midline Neck: full range of motion, supple, no meningismus, no bony tend Respiratory: lungs clear, normal breath sounds, no rhonchi, no respiratory distress, no retraction, no accessory muscle use Cardiovascular #1: normal peripheral pulses, regular rate, rhythm, no edema, no gallop, no JVD, no murmur Gastrointestinal: normal bowel sounds, non tender, soft, no mass, no organomegaly, non-distended, no guarding, no hernia, no pulsatile mass, no rebound Genitourinary: no CVA tenderness Musculoskeletal: other - Increased discomfort paralumbar L2-L3 region no midline step-off Neurologic: motor strength/tone normal, tax manager public III-XII nml as tested, oriented x3 , sensory intact, responsive Psychiatric: mood/affect normal Skin: no rash Lymphatic: normal inspection, no adenopathy Medical Decision Making Diagnostic Impression: Primary Impression: Injury of back Additional Impression: Back sprain ER Course Multiple differentials including but not limited to neurological neurosurgical musculoskeletal process entertained, Patient has a benign medical evaluation there are no signs of Vascular or neurological compromise Findings and history is consistent with likely musculoskeletal sprain/strain patient will have initial conservative outpatient trial Last Vital Signs Date Time Temp Pulse Resp B/P (MAP) Pulse Ox O2 Delivery O2 Flow Rate FiO2 09/07/19 16:44 98.2 89 17 146/79 (101) 99 Room Air Status: improved Disposition: HOME, SELF-CARE Condition: Improved Scripts Hydrocodone Bit/Acetaminophen 5-325* (NORCO 5-325 TABLET*) 1 Each Tablet 1 TAB ORAL Q6H PRN for FOR PAIN, #10 TAB 0 Refills Prov: Sulaiman Vasquez DO 09/07/19 Methocarbamol* (ROBAXIN-750*) 750 Mg Tablet 750 MG PO TID, #21 TAB 0 Refills Prov: Sulaiman Vasquez DO 09/07/19 Ibuprofen* (MOTRIN*) 600 Mg Tablet 600 MG ORAL Q6H PRN for FOR PAIN, #20 TAB 0 Refills Prov: Sulaiman Vasquez DO 09/07/19 Additional Instructions: Patient is provided with the discharge instructions notified to follow up with primary doctor in the next 2-3 days otherwise return to the er with any worsening symptoms. Please note that this report is being documented using [employer] technology. This can lead to erroneous entry secondary to incorrect interpretation by the dictating instrument. Sulaiman Vasquez DO Sep 07, 2019 17:04
[2019-09-07] MEDS ORDERED: Ketorolac 60mg Inj IM ONE (17:15)
[2019-09-07] MEDS ORDERED: HYDROcodone/Acetamin 5/325 tab ORAL ONE (17:15)
[2019-09-07] MEDS ORDERED: NORCO 5-325 TA1 EAC1 ORAL (17:18)
[2019-09-07] MEDS ORDERED: ROBAXIN-750750 MG PO (17:18)
[2019-09-07] MEDS ORDERED: IBUPROFEN600 M1 ORAL (17:18)
[2019-09-07 17:25] VITALS: BP 146/79
--- NOTE | 2019-09-07 17:25 | NUR ---
ER DISCHARGE NOTE: Patient cleared for DC per Dr. Vasquez. Patient AxO x 4, no s/s of acute distress. Patient walks with steady gait. ID band removed.
== END 2019-09-07 17:25 | disposition home or self-care (01) ==
LOC: EMR 17:00
DX: S39.92XA Unspecified injury of lower back, initial encounter (principal); S33.5XXA Sprain of ligaments of lumbar spine, initial encounter; X58.XXXA Exposure to other specified factors, initial encounter; Y92.9 Unspecified place or not applicable; I10 Essential (primary) hypertension
CPT/HCPCS: 96372; 99283

== ENCOUNTER 2019-09-12 15:46 | Emergency (ER) | payer MEDICARE, MEDICAID ==
[~2019-09-12] VITALS: Ht 175.3 cm; Wt 79.4 kg
[~2019-09-12 15:46] MED LIST changes: +IBUPROFEN600 M1 ORAL; +NORCO 5-325 TA1 EAC1 ORAL; +ROBAXIN-750750 MG PO
--- NOTE | 2019-09-12 16:06 | NUR ---
ED Nurse Note: Pt walked into ED w/ c/o L leg weakness. Starting from 2100 yesterday, pt couldn't stand or walk on L leg. No prior history of weakness. No facial droop, no arm weakness. Pt has history of bronchitis and has chronic cough. has seen patient.
[2019-09-12 16:07] VITALS: BP 122/65
[2019-09-12] MEDS ORDERED: Ketorolac 30mg Inj IM ONE (16:15)
[2019-09-12] MEDS ORDERED: HYDROcodone/Acetamin 5/325 tab ORAL ONE (16:15)
--- NOTE | 2019-09-12 16:16 | Emergency Room Report ---
History of Present Illness General Chief Complaint: Stroke Symptoms Source: Patient Present Illness HPI Disclaimer: Please note that this report is being documented using [employer] technology. This can lead to erroneous entry secondary to incorrect interpretation by the dictating instrument. HPI: 64-year-old male history of hypertension, chronic bronchitis presented for low back pain and gait instability. Patient seen here approximately 5 days ago for lumbar strain. Discharged on pain control. Last night he said while walking in his kitchen he felt some instability in his left leg. He denies any pain in the leg. Apparently had some transient paresthesias that have since resolved. Today he complains of continued low back pain that is 8 out of 10 worse with movement. Denies any new injuries. He was walking in the grocery store when he felt some minor instability in his left leg so came to the ER for evaluation. He does walk with crutches occasionally. No chest pain or shortness of breath. No nausea or vomiting. Patient does report a chronic cough. PMH: Hypertension PSH: Reviewed Social Hx: Patient denies any drinking or illicit drug use Allergies: Coded Allergies: No Known Allergies (Unverified , 12/13/15) COVID-19 Screening Contact w/high risk pt: No Recent Travel to affected area: No Experienced COVID-19 symptoms?: Yes COVID-19 symptoms experienced: Cough Patient History Reviewed Nursing Documentation: PMH: Agreed; PSxH: Agreed Nursing Documentation-PMH Past Medical History: No History, Except For Hx Cardiac Problems: No Hx Hypertension: Yes Hx Pacemaker: No Hx Asthma: No Hx COPD: No Hx Diabetes: No Hx Cancer: No Hx Gastrointestinal Problems: No Hx Dialysis: No Hx Neurological Problems: No Hx Cerebrovascular Accident: No Hx Seizures: No Review of Systems All Other Systems: negative except mentioned in HPI Physical Exam Vital Signs Date Time Temp Pulse Resp B/P (MAP) Pulse Ox O2 Delivery O2 Flow Rate FiO2 20 15:57 98.2 88 18 104/58 (73) 100 Room Air Sp02 EP Interpretation: reviewed, normal General Appearance: well appearing, no apparent distress Head: normocephalic, atraumatic Eyes: bilateral eye PERRL, bilateral eye EOMI ENT: hearing grossly normal, moist mucus membranes Neck: full range of motion, supple Respiratory: lungs clear, normal breath sounds, no rhonchi, no respiratory distress, no retraction, no wheezing Cardiovascular #1: normal peripheral pulses, regular rate, rhythm, no murmur Gastrointestinal: non tender, soft, non-distended, no guarding Musculoskeletal: other - Mild right-sided low back tenderness no midline tenderness step-off or deformity Neurologic: alert, motor strength/tone normal, viscosity inspector III-XII nml as tested, oriented, oriented x3, sensory intact, cerebellar normal, no focal defects Skin: normal color, warm/dry Medical Decision Making Diagnostic Impression: Primary Impression: Low back pain ER Course MDM: This is a 64-year-old male history of hypertension presented with feelings of gait instability and low back pain. On my exam patient had no focal neurologic deficits. He had full motor strength and no focal sensory or motor deficit. Low suspicion for stroke. His gait instability may be due to his low back pain , back spasm or radiculopathy. Patient was given pain control in the ER. He does have crutches that he uses occasionally. differential diagnosis: Radiculopathy, spasm, strain, less likely acute stroke Clinical course Patient placed on stretcher. On school bus monitor. After initial history and physical I ordered x-rays and pain control. X-ray did demonstrate evidence of bar compression deformity versus chronic. Patient denied any recent trauma so I do believe this is chronic and he is having an exacerbation can Gerardo to his chronic lumbar disease. Low suspicion for cauda equina or epidural abscess. On reevaluation: Patient feeling improved ambulatory without assistance in the ER. Diagnosis -low back pain, probable strain Stable and discharged to home with prescriptions for pain control.. Followup with PMD. Return to ED if symptoms recur or worsen Last Vital Signs Date Time Temp Pulse Resp B/P (MAP) Pulse Ox O2 Delivery O2 Flow Rate FiO2 09/12/19 15:57 98.2 88 18 104/58 (73) 100 Room Air Status: improved Disposition: HOME, SELF-CARE Condition: Improved Scripts Naproxen* (NAPROSYN*) 250 Mg Tablet 250 MG ORAL TWICE A DAY, #30 TAB 0 Refills Prov: Richar Aguilar M.D. 09/12/19 Referrals: NOT CHOSEN MAKI/,REFERRING (PCP) Richar Aguilar M.D. Sep 12, 2019 16:16
--- NOTE | 2019-09-12 17:11 | Diagnostic Imaging Report ---
Indication: Lumbar spine pain, injury Technique: 3 views of the lumbar spine Comparison: Reference made to CT scan of 10/24/2018 Findings:There is questionably a slight superior endplate compression fracture deformity of the L4 vertebral body, although suspect this is more likely an artifact of positioning. There is very slight relative height loss of the L3 vertebral body, but this appears similar to the 10/24/2018 exam and is most likely due to mild degenerative remodeling. The remaining vertebral body heights are preserved. The disc spaces are preserved. The bony alignment is normal. The bones are osteoporotic. There is considerable bowel gas on the AP view, probably within mildly dilated colon Impression: Doubt acute process. There is equivocal slight superior endplate compression fracture deformity of the L4 vertebral body, but this is most likely artifact of positioning. Nonetheless, correlation with clinical findings is recommend with further evaluation with MRI if clinically indicated Osteoporotic change Colonic distention, nonspecific
[2019-09-12] MEDS ORDERED: NAPROXEN250 MG ORAL (17:40)
[2019-09-12 17:45] VITALS: BP 120/69
--- NOTE | 2019-09-12 17:45 | NUR ---
ER DISCHARGE NOTE: Patient is cleared to be discharged per ERMD, pt is aox4, on room air, with stable vital signs. pt was given dc and prescription instructions, pt was able to verbalize understanding, pt id band removed. pt is able to ambulate with steady gait. pt took all belongings.
== END 2019-09-12 17:47 | disposition home or self-care (01) ==
LOC: EMR 15:58
DX: M54.5 Low back pain (principal); R26.89 Other abnormalities of gait and mobility; I10 Essential (primary) hypertension; R05 Cough
CPT/HCPCS: 72020; 96372; 99283; J1885

== ENCOUNTER 2019-12-25 13:27 | Emergency (ER) | payer MEDICARE, MEDICAID ==
[~2019-12-25 13:27] MED LIST changes: +NAPROXEN250 MG ORAL
[2019-12-25] MEDS ORDERED: Morphine Sulfate 4mg/ml Inj (IV USE ONLY) IVP ONE (14:15)
[2019-12-25] MEDS ORDERED: ASPIR 8181 MG ORAL (15:25)
== END 2019-12-25 17:02 | disposition left against medical advice (07) ==
DX: M79.671 Pain in right foot (principal); I95.9 Hypotension, unspecified; K92.1 Melena; D64.9 Anemia, unspecified; I10 Essential (primary) hypertension; M20.031 Swan-neck deformity of right finger(s); J44.9 Chronic obstructive pulmonary disease, unspecified; D72.829 Elevated white blood cell count, unspecified; Z95.828 Presence of other vascular implants and grafts; R22.41 Localized swelling, mass and lump, right lower limb
CPT/HCPCS: 71045; 73630; 80053; 82550; 83880; 84484; 85007; 85025; 85610; 85651; 85730; 86140; 86850; 86900; 86901; 87040; 93005; 93971; 96374; 96375; 99284; J2270; J2405

== ENCOUNTER 2019-12-26 05:58 | Inpatient (IN) | payer MEDICARE, MEDICAID ==
[~2019-12-26] VITALS: Ht 170.2 cm; Wt 59.0 kg
[~2019-12-26 05:58] MED LIST changes: +ASPIR 8181 MG ORAL
[2019-12-26] MEDS ORDERED: cefTRIAXone 2 GM in NS 110 ML IV ONE (06:30)
[2019-12-26] MEDS ORDERED: Vancomycin 1 GM in NS 275 ML IV ONE (06:30)
--- NOTE | 2019-12-26 06:52 | Emergency Room Report ---
History of Present Illness General Chief Complaint: Lower Extremity Injury Source: Patient Present Illness HPI Presents with chief complaint 64-year-old -Citizen Of The [place] male with past medical history of colon cancer status post resection 2 months ago at [facility] of right foot pain. Of note, patient was seen in the emergency department yesterday and offered admission secondary to grossly abnormal laboratory and imaging findings, however patient left AGAINST MEDICAL ADVICE because he had personal affairs to arrange. Patient is back requesting antibiotics and admission. Also c/o dark brown stools. Pt states colonoscopy performed 2 months ago showed bleeding polyps. The patient's symptoms were gradual onset, severity was moderate, duration since 2 days. The patient denies associated symptoms of fever, nausea, vomiting , diarrhea, chest pain, shortness of breath. He is not ambulatory at baseline Past medical history: Colon cancer Past surgical history: Colon resection, (ad)renal resection Smoking: Denies Alcohol use: Denies Drug use: Denies Review of systems: CONST: No fevers or chills, No night sweats PULMONARY: No productive cough, No shortness of breath CARDIAC: No chest pain, No palpitations GI: No vomiting, No diarrhea , +dark bloody stools : No dysuria, No hematuria, No discharge NEURO: No new_focal_weakness_or_numbness, No confusion, No vision changes MSK: R ankle pain and swelling 14 point Review of Systems is otherwise negative except per HPI Physical Exam: GENERAL: Awake_alert_ nontoxic, no acute distress Spo2 100 % on [RA], [normal] EYES: Extraocular muscles are intact. Conjunctivae clear. Lids without swelling ENT: External nose and ear normal_in_appearance. Oropharynx clear. Head_ atraumatic, Moist_oral_mucosa NECK: No JVD. No meningismus. No thyromegaly. Supple. Trachea midline RESP: Normal respiratory effort. Symmetric rise. No stridor. Clear_to_ auscultation_No_rales_No_wheezes CARDIAC: Regular rate and regular rhythm on_auscultation No_significant pedal edema. ABDOMEN: Soft. Nondistended. Nontender_No_rebound_or_guarding. MSK: Right lower extremity: Right ankle joint is warm and swollen. No abrasions or lacerations noted. Exquisite pain with range of motion of the right ankle joint. No palpable crepitus. No cellulitis. Negative Homans sign. SKIN: Warm and dry. No visible cyanosis or pallor NEUROLOGIC: Alert, oriented x3. Motor_and_sensation_grossly_intact. No truncal ataxia. Gait_normal Psych: Normal mood and affect, normal judgment and insight - COORDINATION OF CARE Case was discussed with: Patient Any labs that were ordered were interpreted as part of the medical decision making: Patient was seen in the emergency department yesterday. X-rays of the right ankle demonstrate osteomyelitis. Ultrasound of the right leg was negative for acute DVT. Labs showed critical anemia Medical Decision Making/Plan: Differential diagnosis includes musculoskeletal pain, fracture, dislocation, soft tissue infection such as cellulitis or abscess, compartment syndrome, septic arthritis, deep venous thrombosis, among others. On examination, patient's right ankle is swollen with pain on active/passive range of motion. I suspect that patient has worsening calcaneal osteomyelitis with contiguous joint infection that will need operative debridement. There is no palpable crepitus or cellulitis on examination indicative of necrotizing fasciitis. No subq air noted on xray of foot from yesterday. Distally the patient has capillary refill <2 seconds and strong pulses. Ultrasound of the lower extremity was negative for DVT yesterday. Initial EKG was noted to have J point elevation in V3. Repeat interval EKG shows no change in morphology. Suspect lead placement. Troponin negative x 1. Laboratory evaluation demonstrates leukocytosis of 12.9 and elevated inflammatory markers ESR and CRP, consistent with osteomyelitis. Patient was also found to have microcytic anemia with hemoglobin of 7.5 and thrombocytosis of 549, likely reactive. Offered digital rectal examination to evaluate for rectal bleeding, however patient declined given his history of colon cancer. Due to hypotension and anemia hemoglobin 7.5, patient was transfused 1 unit of PRBC in the emergency department. Patient will be admitted for further management of his right calcaneal osteomyelitis, anemia, and thrombocytosis. I spoke with Dr. Madsen, and reviewed the patients presentation, workup, results, and treatment. They will admit the patient for further care and evaluation, and assume care of the patient at this time. Allergies: Coded Allergies: No Known Allergies (Unverified , 12/13/15) COVID-19 Screening Contact w/high risk pt: No Recent Travel to affected area: No Experienced COVID-19 symptoms?: No COVID-19 symptoms experienced: Cough COVID-19 Testing performed API ARCHITECT: No Nursing Documentation-PMH Hx Hypertension: Yes Hx Pacemaker: No Hx Asthma: No Hx COPD: No Hx Diabetes: No Hx Cancer: No Hx Gastrointestinal Problems: No Hx Dialysis: No Hx Neurological Problems: No Hx Cerebrovascular Accident: No Hx Seizures: No Physical Exam Vital Signs Date Time Temp Pulse Resp B/P (MAP) Pulse Ox O2 Delivery O2 Flow Rate FiO2 12/26/19 06:07 97.7 72 18 100/53 (69) 100 Room Air Sp02 EP Interpretation: reviewed, normal Procedures Critical Care Time Critical Care Time Critical Care Statement Organ systems at risk include: Circulatory, cardiac, limb threat Critical care performed for 45 minutes. Time is exclusive of separately billable procedures. Time includes: direct patient care, continuous monitoring and multiple patient reassessment, coordination of patient care, review of patient's medical records , medical consultation, family consultation regarding treatment decisions and documentation of patient care. Medical Decision Making Diagnostic Impression: Primary Impression: Acute osteomyelitis of right calcaneus Additional Impressions: Colon cancer Qualified Codes: C18.9 - Malignant neoplasm of colon, unspecified Anemia Qualified Codes: D64.9 - Anemia, unspecified Thrombocytosis Acute kidney injury Foot pain Qualified Codes: M79.671 - Pain in right foot Abnormal EKG Melena GI bleed EKG Diagnostic Results PA Scribcharles Text 12-lead EKG (interpreted by me) Time: 725 Indication: Rhythm analysis Tracing visualized and Interpreted by me. Rhythm: Normal sinus rhythm Rate: 84 bpm QTc: 470 Morphology: No_significant_ST_elevations_or_depressions, No STEMI Impression: Knee 3 has J-point elevation. No reciprocal changes. Normal axis. Normal intervals 12-lead EKG (interpreted by me) Time: 08 26 Indication: [Rhythm analysis] Tracing visualized and Interpreted by me. Rhythm: Normal sinus rhythm, nonspecific T wave abnormality, no more J-point elevation in V3 Rate: 79 bpm QTc: 456 Morphology: No_significant_ST_elevations_or_depressions, No STEMI Impression: Normal sinus rhythm, nonspecific T wave abnormality normal J-point inversion V3 Rhythm Strip Diag. Results Rhythm Strip Time: 07:58 EP Interpretation: yes Rate: 90 Rhythm: NSR, no PVC's, no ectopy Last Vital Signs Date Time Temp Pulse Resp B/P (MAP) Pulse Ox O2 Delivery O2 Flow Rate FiO2 12/26/19 06:07 97.7 72 18 100/53 (69) 100 Room Air Disposition: ADMITTED INPATIENT Admit Decision Time: 19:00 Condition: Stable Referrals: NOT CHOSEN MAKI/,REFERRING (PCP) Zahra Vu D.O. Dec 26, 2019 06:52
[2019-12-26 07:00] VITALS: BP 95/47
[2019-12-26] MEDS ORDERED: Pantoprazole Inj IVP ONE (07:00)
[2019-12-26] MEDS ORDERED: Morphine Sulfate 2mg/ml Inj(IV/IM USE ONLY) IVP ONE (07:00)
[2019-12-26 07:34] LABS: HEMATOCRIT 24.1 % (42.0-52.0); HEMOGLOBIN 7.5 G/DL (14.2-18.0); MEAN CORPUSCULAR VOLUME 82 FL (80-99); PLATELET COUNT 549 K/UL (150-450); RED BLOOD COUNT 2.95 M/UL (4.70-6.10); RED CELL DISTRIBUTION WIDTH 15.7 % (11.6-14.8); WHITE BLOOD COUNT 12.9 K/UL (4.8-10.8)
[2019-12-26 07:39] LABS: INR 1.1 (0.9-1.1)
[2019-12-26 07:48] LABS: ANION GAP 8 mmol/L (5-15); BLOOD UREA NITROGEN 31 mg/dL (7-18); CALCIUM 8.8 MG/DL (8.5-10.1); CARBON DIOXIDE 25 MMOL/L (21-32); CHLORIDE 103 MMOL/L (98-107); CREATININE 1.7 MG/DL (0.55-1.30); SODIUM 136 MMOL/L (136-145)
[2019-12-26 08:02] LABS: ALANINE AMINOTRANSFERASE 31 U/L (12-78); ALBUMIN 2.1 G/DL (3.4-5.0); ALBUMIN/GLOBULIN RATIO 0.4 (1.0-2.7); ALKALINE PHOSPHATASE 79 U/L (46-116); ASPARTATE AMINO TRANSFERASE 21 U/L (15-37); BILIRUBIN,TOTAL 0.3 MG/DL (0.2-1.0); CKMB 0.7 NG/ML (0.0-3.6); CREATINE KINASE 33 U/L (26-308)
[2019-12-26 10:45] LABS: APPEARANCE,URINE SLIGHTLY CLOUDY; BILIRUBIN, URINE NEGATIVE (NEGATIVE); GLUCOSE, URINE (UA) NEGATIVE (NEGATIVE); KETONES,URINE NEGATIVE (NEGATIVE); LEUKOCYTE ESTERASE ,URINE 3+ (NEGATIVE); NITRITE,URINE NEGATIVE (NEGATIVE); PH,URINE 5 (4.5-8.0); PROTEIN,URINE 2+ (NEGATIVE); UROBILINOGEN,URINE NORMAL MG/DL (0.0-1.0)
--- NOTE | 2019-12-26 10:45 | History & Physical ---
History and Physical History & Physicial History and Physical HPI Patient is a 64-year-old man with past medical history of colon cancer, status post resection 2 months ago at [facility], sdmitted complaining of 2 day history ofright foot pain, gradual onset, severity was moderate. The patient denies associated symptoms of fever, nausea, vomiting, diarrhea, chest pain, shortness of breath. He is not ambulatory at baseline Past medical history: Colon cancer, Hypertension Past surgical history: Colon resection, renal resection Social History: Non smoker, no drinker Allergies: NKDA FH: NC Review of systems: CONST: No fevers or chills, No night sweats PULMONARY: No productive cough, No shortness of breath CARDIAC: No chest pain, No palpitations GI: No vomiting, No diarrhea , No melena, BRBPR : No dysuria, No hematuria, No discharge NEURO: No weakness, numbness, No confusion, No vision changes 14 point Review of Systems is otherwise negative except per HPI Objective Physical Exam: Vital Signs Noted Date Time Temp Pulse Resp B/P (MAP) Pulse Ox O2 Delivery O2 Flow Rate FiO2 12/26/19 06:07 97.7 72 18 100/53 (69) 100 Room Air GENERAL: Awake, alert, no distress EYES: Extraocular muscles are intact. Conjunctivae clear. Lids without swelling ENT: NCAT, External nose and ear normal. Oropharynx clear.Moist mm NECK: No JVD. No meningismus. No thyromegaly. Supple. Trachea midline RESP: Normal respiratory effort. Symmetric rise. CTAB CARDIAC: Regular rate and regular rhythm, HS1, HS2 normal, No edema. ABDOMEN: Soft. Nondistended. Nontender. No organomegaly. MSK: Right lower extremity: Right ankle joint is warm and swollen. No abrasions or lacerations noted. Exquisite pain with range of motion of the right ankle joint. No palpable crepitus. No cellulitis. . SKIN: Warm and dry. No visible cyanosis or pallor NEUROLOGIC: Alert, oriented x3. No focal signs, no seizures Impression: RLE Cellulitis, osteomyelitis H/o Colon cancer s/p resection Hypertension Anemia -s/p TFN in ED Thrombocytosis Non specific T wave changes on EKG Plan: IVF IV antibiotics Transfuse PRN ID Consultation GI Consultation Monitor labs Protonix [employer] Medications PPX DC NSAID's Reduce HTN meds X-rays of the right ankle demonstrate osteomyelitis. Ultrasound of the right leg was negative for acute DVT. EKG: Normal sinus rhythm, nonspecific T wave abnormality Rate: 79 bpm QTc: 456 Morphology: No STEMI, Normal sinus rhythm, nonspecific T wave abnormality normal J-point inversion V3 Mik Chamberlain MD Dec 26, 2019 10:45
[2019-12-26 10:47] LABS: COLOR,URINE YELLOW
[2019-12-26] MEDS ORDERED: cefTRIAXone 1 GM in D5W 55 ML IVPB SCH (11:15)
[2019-12-26 12:00] VITALS: BP 104/58
[2019-12-26] MEDS ORDERED: Vancomycin 500mg/D5W 110ml IVPB ONE ×2 (12:30)
[2019-12-26] MEDS: Methocarbamol 750mg tab ORAL SCH ×2 (13:14→17:57)
[2019-12-26 16:00] VITALS: BP 114/59
[2019-12-26 16:20] LABS: BASOPHILS % (AUTO) 0.2 % (0.0-2.0); EOSINOPHILS % (AUTO) 0.2 % (0.0-3.0); HEMATOCRIT 27.9 % (42.0-52.0); HEMOGLOBIN 9.2 G/DL (14.2-18.0); LYMPHOCYTES % (AUTO) 9.9 % (20.0-45.0); MEAN CORPUSCULAR VOLUME 81 FL (80-99); MONOCYTES % (AUTO) 8.3 % (1.0-10.0); NEUTROPHILS % (AUTO) 81.4 % (45.0-75.0); PLATELET COUNT 550 K/UL (150-450); RED BLOOD COUNT 3.44 M/UL (4.70-6.10); RED CELL DISTRIBUTION WIDTH 16.6 % (11.6-14.8); WHITE BLOOD COUNT 16.9 K/UL (4.8-10.8)
[2019-12-26 20:00] VITALS: BP 100/49
[2019-12-26] MEDS: HYDROcodone/Acetamin 5/325 tab ORAL PRN (21:23)
[2019-12-27] VITALS: BP 106/56
[2019-12-27] MEDS: Acetaminophen 500mg (ES) tab ORAL PRN ×2 (02:11→16:53)
[2019-12-27 04:00] VITALS: BP 116/61
[2019-12-27 06:48] LABS: BASOPHILS % (AUTO) 0.2 % (0.0-2.0); EOSINOPHILS % (AUTO) 0.4 % (0.0-3.0); HEMATOCRIT 26.7 % (42.0-52.0); HEMOGLOBIN 8.3 G/DL (14.2-18.0); LYMPHOCYTES % (AUTO) 13.4 % (20.0-45.0); MEAN CORPUSCULAR VOLUME 83 FL (80-99); MONOCYTES % (AUTO) 9.4 % (1.0-10.0); NEUTROPHILS % (AUTO) 76.6 % (45.0-75.0); PLATELET COUNT 511 K/UL (150-450); RED BLOOD COUNT 3.23 M/UL (4.70-6.10); RED CELL DISTRIBUTION WIDTH 15.5 % (11.6-14.8); WHITE BLOOD COUNT 13.1 K/UL (4.8-10.8)
[2019-12-27 07:23] LABS: ANION GAP 9 mmol/L (5-15); BLOOD UREA NITROGEN 20 mg/dL (7-18); CALCIUM 8.4 MG/DL (8.5-10.1); CARBON DIOXIDE 22 MMOL/L (21-32); CHLORIDE 107 MMOL/L (98-107); CREATININE 1.2 MG/DL (0.55-1.30); POTASSIUM 4.1 MMOL/L (3.5-5.1); SODIUM 138 MMOL/L (136-145)
[2019-12-27 08:00] VITALS: BP 123/66
--- NOTE | 2019-12-27 08:15 | General Progress Note ---
Assessment/Plan Assessment/Plan: Impression: RLE Cellulitis, osteomyelitis H/o Colon cancer s/p resection Hypertension Anemia -s/p TFN Thrombocytosis Non specific T wave changes on EKG Plan: IVF IV antibiotics Transfuse PRN ID Consultation GI Consultation Monitor labs monitor vitals impression, plan, and exam edited and reviewed in detail care discussed with RN Subjective Allergies: Coded Allergies: No Known Allergies (Unverified , 12/13/15) Subjective care noted Objective Last 24 Hour Vital Signs Date Time Temp Pulse Resp B/P (MAP) Pulse Ox O2 Delivery O2 Flow Rate FiO2 12/27/19 04:00 97.9 80 19 116/61 (79) 98 12/27/19 04:00 83 12/27/19 02:41 98.9 12/27/19 00:00 84 12/27/19 00:00 101.5 81 19 106/56 (73) 100 12/26/19 21:00 Room Air 12/26/19 20:00 99.3 81 18 100/49 (66) 100 12/26/19 20:00 87 12/26/19 16:00 97.9 84 18 114/59 (77) 98 12/26/19 15:44 89 12/26/19 12:34 68 12/26/19 12:00 98.0 75 20 104/58 (73) 100 12/26/19 11:00 Room Air 12/26/19 10:14 97.8 76 18 105/54 100 Room Air 12/26/19 09:55 97.8 81 20 Intake and Output 12/26/19 12/27/19 19:00 07:00 Intake Total 1340 ml 500 ml Output Total 200 ml Balance 1340 ml 300 ml Intake Oral 600 ml IV Total 740 ml 500 ml Output Urine Total 200 ml # Voids 1 Laboratory Tests 12/26/19 09:50: Urine Color Yellow, Urine Appearance Slightly cloudy, Urine pH 5, Urine Specific [place] 1.015, Urine Protein 2+H, Urine Glucose (UA) Negative, Urine Ketones Negative, Urine Blood 2+H, Urine Nitrite Negative, Urine Bilirubin Negative, Urine Urobilinogen Normal, Urine Leukocyte Esterase 3+H, Urine RBC 2- 4H, Urine WBC TntcH, Urine Squamous Epithelial Cells Occasional, Urine Bacteria Few 12/26/19 16:15: White Blood Count 16.9H, Red Blood Count 3.44L, Hemoglobin 9.2L, Hematocrit 27.9L, Mean Corpuscular Volume 81, Mean Corpuscular Hemoglobin 26.7L, Mean Corpuscular Hemoglobin Concent 32.9, Red Cell Distribution Width 16.6H, Platelet Count 550H, Mean Platelet Volume 4.9L, Neutrophils (%) (Auto) 81.4H, Lymphocytes (%) (Auto) 9.9L, Monocytes (%) (Auto) 8.3, Eosinophils (%) (Auto) 0.2, Basophils (%) (Auto) 0.2 12/27/19 06:10: White Blood Count 13.1H, Red Blood Count 3.23L, Hemoglobin 8.3L, Hematocrit 26.7L, Mean Corpuscular Volume 83, Mean Corpuscular Hemoglobin 25.6L, Mean Corpuscular Hemoglobin Concent 31.0L, Red Cell Distribution Width 15.5H, Platelet Count 511H, Mean Platelet Volume 5.1L, Neutrophils (%) (Auto) 76.6H, Lymphocytes (%) (Auto) 13.4L, Monocytes (%) (Auto) 9.4, Eosinophils (%) (Auto) 0.4, Basophils (%) (Auto) 0.2, Sodium Level 138, Potassium Level 4.1, Chloride Level 107, Carbon Dioxide Level 22, Anion Gap 9, Blood Urea Nitrogen 20H, Creatinine 1.2, Estimat Glomerular Filtration Rate > 60, Glucose Level 82, Calcium Level 8.4L, Random Vancomycin Level 7.7 Height (Feet): 5 Height (Inches): 7.00 Weight (Pounds): 130 Objective GENERAL: Awake, alert, no distress NECK: No JVD. No meningismus. No thyromegaly. Supple. Trachea midline RESP: Normal respiratory effort. Symmetric rise. CTAB CARDIAC: Regular rate and regular rhythm, HS1, HS2 normal, ABDOMEN: Soft. Nondistended. Nontender. MSK: Right ankle joint is warm and swollen. pain with range of motion of the right ankle joint. No palpable crepitus. No cellulitis. . SKIN: Warm and dry. No visible cyanosis or pallor NEUROLOGIC: Alert, oriented x3. No focal signs Kevin Madsen MD Dec 27, 2019 08:15
[2019-12-27] MEDS: Aspirin EC 81mg tab ORAL SCH (08:34)
[2019-12-27] MEDS: Methocarbamol 750mg tab ORAL SCH ×3 (08:34→17:50)
[2019-12-27] MEDS: Vancomycin 1gm in D5W 275ml IVPB SCH (09:02)
[2019-12-27] MEDS: cefTRIAXone 1 GM in D5W 110 ML IVPB SCH (10:32)
--- NOTE | 2019-12-27 10:47 | GI Progress Note ---
Assessment/Plan Problems: (1) Osteomyelitis ICD Codes: M86.9 - Osteomyelitis, unspecified SNOMED: 81954585 (2) Colon cancer ICD Codes: C18.9 - Malignant neoplasm of colon, unspecified SNOMED: 274503392, 9905831 Qualifiers: Qualified Codes: C18.9 - Malignant neoplasm of colon, unspecified (3) Anemia ICD Codes: D64.9 - Anemia, unspecified SNOMED: 154342090 Qualifiers: Qualified Codes: D64.9 - Anemia, unspecified Assessment/Plan see full dictation Subjective Gastrointestinal/Abdominal: Reports: no symptoms Objective Last 24 Hour Vital Signs Date Time Temp Pulse Resp B/P (MAP) Pulse Ox O2 Delivery O2 Flow Rate FiO2 12/27/19 09:00 Room Air 12/27/19 08:21 92 12/27/19 08:00 97.7 85 20 123/66 (85) 100 12/27/19 04:00 97.9 80 19 116/61 (79) 98 12/27/19 04:00 83 12/27/19 02:41 98.9 12/27/19 00:00 84 12/27/19 00:00 101.5 81 19 106/56 (73) 100 12/26/19 21:00 Room Air 12/26/19 20:00 99.3 81 18 100/49 (66) 100 12/26/19 20:00 87 12/26/19 16:00 97.9 84 18 114/59 (77) 98 12/26/19 15:44 89 12/26/19 12:34 68 12/26/19 12:00 98.0 75 20 104/58 (73) 100 12/26/19 11:00 Room Air Intake and Output 12/26/19 12/27/19 19:00 07:00 Intake Total 1340 ml 550 ml Output Total 200 ml Balance 1340 ml 350 ml Intake Oral 600 ml IV Total 740 ml 550 ml Output Urine Total 200 ml # Voids 1 Laboratory Tests Test 12/26/19 16:15 12/27/19 06:10 White Blood Count 16.9 K/UL (4.8-10.8) H 13.1 K/UL (4.8-10.8) H Red Blood Count 3.44 M/UL (4.70-6.10) L 3.23 M/UL (4.70-6.10) L Hemoglobin 9.2 G/DL (14.2-18.0) L 8.3 G/DL (14.2-18.0) L Hematocrit 27.9 % (42.0-52.0) L 26.7 % (42.0-52.0) L Mean Corpuscular Volume 81 FL (80-99) 83 FL (80-99) Mean Corpuscular Hemoglobin 26.7 PG (27.0-31.0) L 25.6 PG (27.0-31.0) L Mean Corpuscular Hemoglobin Concent 32.9 G/DL (32.0-36.0) 31.0 G/DL (32.0-36.0) L Red Cell Distribution Width 16.6 % (11.6-14.8) H 15.5 % (11.6-14.8) H Platelet Count 550 K/UL (150-450) H 511 K/UL (150-450) H Mean Platelet Volume 4.9 FL (6.5-10.1) L 5.1 FL (6.5-10.1) L Neutrophils (%) (Auto) 81.4 % (45.0-75.0) H 76.6 % (45.0-75.0) H Lymphocytes (%) (Auto) 9.9 % (20.0-45.0) L 13.4 % (20.0-45.0) L Monocytes (%) (Auto) 8.3 % (1.0-10.0) 9.4 % (1.0-10.0) Eosinophils (%) (Auto) 0.2 % (0.0-3.0) 0.4 % (0.0-3.0) Basophils (%) (Auto) 0.2 % (0.0-2.0) 0.2 % (0.0-2.0) Sodium Level 138 MMOL/L (136-145) Potassium Level 4.1 MMOL/L (3.5-5.1) Chloride Level 107 MMOL/L (98-107) Carbon Dioxide Level 22 MMOL/L (21-32) Anion Gap 9 mmol/L (5-15) Blood Urea Nitrogen 20 mg/dL (7-18) H Creatinine 1.2 MG/DL (0.55-1.30) Estimat Glomerular Filtration Rate > 60 mL/min (>60) Glucose Level 82 MG/DL (74-106) Calcium Level 8.4 MG/DL (8.5-10.1) L Random Vancomycin Level 7.7 ug/mL Height (Feet): 5 Height (Inches): 7.00 Weight (Pounds): 130 General Appearance: alert Cardiovascular: normal peripheral pulses Respiratory/Chest: lungs clear Abdominal Exam: non tender Genitourinary/Rectal: normal rectal exam Extremities: non-tender Odell Swenson MD Dec 27, 2019 10:47
[2019-12-27 11:56] VITALS: BP 100/58
--- NOTE | 2019-12-27 12:15 | Consultation ---
DATE OF CONSULTATION: 12/27/2019 GASTROENTEROLOGY CONSULTATION CONSULTING PHYSICIAN: Odell Swenson MD. REFERRING PHYSICIAN: Kevin Madsen MD. CHIEF COMPLAINT: Anemia. HISTORY OF PRESENT ILLNESS: The patient is a 64-year-old male with past medical history of colon cancer, recently diagnosed and according to him he had resection two months ago at [facility], and he received one dose of chemotherapy, admitted mainly for the right foot infection, found to be profoundly anemic so GI consult requested for evaluation. According to the patient, he does not have any active GI bleeding at this time. PAST MEDICAL HISTORY: 1. Colon cancer, status post resection. 2. Hypertension. ALLERGIES: No known drug allergies. MEDICATIONS: Please see medication reconciliation list. SOCIAL HISTORY: The patient denies any tobacco or alcohol abuse. FAMILY HISTORY: Noncontributory. REVIEW OF SYSTEMS: A 10-point review of systems was performed and pertinent positives is in HPI. PAST SURGICAL HISTORY: Partial colectomy. PHYSICAL EXAMINATION: VITAL SIGNS: Temperature is 97.7, pulse 84, respirations 20, blood pressure 123/66. HEENT: Normocephalic and atraumatic. Mild pale conjunctivae. NECK: Supple. No evidence of obvious lymphadenopathy. CARDIOVASCULAR: Rhythm rate and rhythm. Plus S1-S2. LUNGS: Clear to auscultation bilaterally. ABDOMEN: Positive bowel sounds. Soft and nontender. No rebound. No peritoneal sign. EXTREMITIES: No cyanosis, no clubbing, no edema. ASSESSMENT: This is a 64-year-old male with recent colon cancer, status post resection on chemotherapy, presented with right foot infection and profoundly anemic. PLAN: 1. Transfuse to keep hemoglobin above 7. 2. Send stool for OB to rule out GI bleed. 3. Change Protonix from 40 mg IV q.12 h. to 40 mg daily. 4. Start the patient on Colace, antibiotics per ID. 5. Follow recommendations. 6. Consider GI procedure if needed. I want to thank Dr. Kevin Madsen for this kind referral. Odell Swenson M.D. DR: JEFF JOB#: [id number] CC:
--- NOTE | 2019-12-27 13:30 | Consultation ---
DATE OF CONSULTATION: 12/27/2019 INFECTIOUS DISEASE CONSULTATION CONSULTING PHYSICIAN: Shayy Salmeron MD. REFERRING PHYSICIAN: Kevin Madsen MD. REASON FOR CONSULTATION: Foot osteomyelitis. HISTORY OF PRESENTING ILLNESS: This is a 64-year-old gentleman with history of hypertension and colon cancer, status post resection, who comes in with foot pain, which has improved. An Infectious Disease consultation has been obtained for possible osteomyelitis of the right foot. PAST MEDICAL HISTORY: 1. History of hypertension. 2. History of colon cancer, status post resection. SOCIAL HISTORY: He is a smoker. He does not drink alcohol. No history of drug use. FAMILY HISTORY: Noncontributory. REVIEW OF SYSTEMS: RESPIRATORY: No fever. No cough. No shortness of breath or chest pain. CARDIAC: No chest pain. No palpitation. No dizziness. No syncope. GASTROINTESTINAL: No nausea. No vomiting. No abdominal pain or diarrhea. MUSCULOSKELETAL: He denies any pain. MEDICATIONS: As an inpatient, he is on Protonix, docusate, ceftriaxone, vancomycin, aspirin, Robaxin, [place], and Tylenol. ALLERGIES: No known drug allergies. PHYSICAL EXAMINATION: VITAL SIGNS: Temperature 97.7, T-max of 101.5, pulse 92, respiratory rate 20, and blood pressure 123/66. O2 saturation of 100% on room air. HEENT: Pupils are equally reactive to light and accommodation. Mouth appears clean without thrush. NECK: Supple. No adenopathy. No JVD. CARDIOVASCULAR: Regular rate and rhythm. No murmurs. LUNGS: Clear to auscultation bilaterally. No crackles. No wheezes. ABDOMEN: Soft, nontender. No organomegaly. EXTREMITIES: No cyanosis, no clubbing, no edema. Right leg with a vacuum noted. LABORATORY AND DIAGNOSTIC DATA: White count of 13.1, hemoglobin 8.3, hematocrit 26.7, MCV 83, and platelet count of 511,000. Neutrophils of 76%. Sodium 138, potassium 4.1, chloride 107, bicarb 22, BUN 20, creatinine 1.2. Glucose of 82. Calcium 8.4. Total bilirubin 0.3, AST 21, ALT 31, alkaline phosphatase 79. CK of 33, CK-MB 0.7. Troponin 0. C-reactive protein 28.7. Total protein 7.4, albumin 2.1. UA showing too numerous to count white cells. Foot x-ray is showing erosions of the calcaneus on the right side. Chest x-ray on 12/25/2019 showing no acute disease. ASSESSMENT: This is a 64-year-old gentleman with history of colon cancer and hypertension, who comes in with right foot pain and is found to have, 1. Right foot osteomyelitis. 2. Hypertension. 3. Colon cancer. 4. Leukocytosis is improving. 5. Urinary tract infection. PLAN: 1. We will order foot cultures. 2. We will order urine cultures. 3. We will follow up cultures and adjust antibiotics accordingly. I would like to thank Dr. Madsen for this consultation. Shayy Salmeron M.D. DR: CARLYLE JOB#: [id number] CC:
[2019-12-27 16:00] VITALS: BP 102/53
[2019-12-27] MEDS: Docusate 100mg cap ORAL SCH (17:50)
[2019-12-27 20:00] VITALS: BP 105/62
[2019-12-27] MEDS: HYDROcodone/Acetamin 5/325 tab ORAL PRN (21:11)
[2019-12-28] VITALS: BP 102/65
[2019-12-28 04:00] VITALS: BP 112/60
[2019-12-28] MEDS: HYDROcodone/Acetamin 5/325 tab ORAL PRN (05:44)
[2019-12-28 07:09] LABS: BASOPHILS % (AUTO) 0.6 % (0.0-2.0); EOSINOPHILS % (AUTO) 0.1 % (0.0-3.0); HEMATOCRIT 25.7 % (42.0-52.0); HEMOGLOBIN 8.1 G/DL (14.2-18.0); LYMPHOCYTES % (AUTO) 13.9 % (20.0-45.0); MEAN CORPUSCULAR VOLUME 83 FL (80-99); MONOCYTES % (AUTO) 9.7 % (1.0-10.0); NEUTROPHILS % (AUTO) 75.7 % (45.0-75.0); PLATELET COUNT 508 K/UL (150-450); RED BLOOD COUNT 3.11 M/UL (4.70-6.10); RED CELL DISTRIBUTION WIDTH 15.8 % (11.6-14.8); WHITE BLOOD COUNT 15.4 K/UL (4.8-10.8)
[2019-12-28 07:19] LABS: ANION GAP 9 mmol/L (5-15); BLOOD UREA NITROGEN 13 mg/dL (7-18); CALCIUM 8.7 MG/DL (8.5-10.1); CARBON DIOXIDE 23 MMOL/L (21-32); CHLORIDE 106 MMOL/L (98-107); CREATININE 1.1 MG/DL (0.55-1.30); POTASSIUM 4.2 MMOL/L (3.5-5.1); SODIUM 138 MMOL/L (136-145)
[2019-12-28 07:30] LABS: % IRON SATURATION 6 % (15-50); IRON 8 ug/dL (50-175); TOTAL IRON BINDING CAPACITY 132 ug/dL (250-450)
[2019-12-28] MEDS: Docusate 100mg cap ORAL SCH (08:09)
[2019-12-28] MEDS: Methocarbamol 750mg tab ORAL SCH (08:09)
[2019-12-28] MEDS: Aspirin EC 81mg tab ORAL SCH (08:09)
[2019-12-28 08:30] VITALS: BP 121/57
--- NOTE | 2019-12-28 08:35 | General Progress Note ---
Assessment/Plan Assessment/Plan: Impression: RLE Cellulitis, osteomyelitis H/o Colon cancer s/p resection Hypertension Anemia -s/p TFN Thrombocytosis Non specific T wave changes on EKG Plan: IVF IV antibiotics Transfuse PRN ID Consultation GI Consultation Monitor labs monitor vitals patient wants to sign out AMA and understands the gravity of the situation impression, plan, and exam edited and reviewed in detail care discussed with RN Subjective Allergies: Coded Allergies: No Known Allergies (Unverified , 12/13/15) Subjective care noted Objective Last 24 Hour Vital Signs Date Time Temp Pulse Resp B/P (MAP) Pulse Ox O2 Delivery O2 Flow Rate FiO2 12/28/19 04:00 97.8 82 17 112/60 (77) 98 12/28/19 04:00 71 12/28/19 00:00 68 12/28/19 00:00 98.1 80 17 102/65 (77) 98 12/27/19 21:00 Room Air 12/27/19 20:00 98.1 98 20 105/62 (76) 100 12/27/19 20:00 80 12/27/19 16:00 98.2 86 20 102/53 (69) 100 12/27/19 15:41 81 12/27/19 11:56 97.6 77 20 100/58 (72) 100 12/27/19 11:44 68 12/27/19 09:00 Room Air Intake and Output 12/27/19 12/28/19 19:00 07:00 Intake Total 1565.000 ml 360 ml Output Total 500 ml 700 ml Balance 1065.000 ml -340 ml Intake Oral 630 ml 360 ml IV Total 935.000 ml Output Urine Total 500 ml 700 ml # Voids 3 Laboratory Tests 12/28/19 05:33: White Blood Count 15.4H, Red Blood Count 3.11L, Hemoglobin 8.1L, Hematocrit 25.7L, Mean Corpuscular Volume 83, Mean Corpuscular Hemoglobin 25.9L, Mean Corpuscular Hemoglobin Concent 31.3L, Red Cell Distribution Width 15.8H, Platelet Count 508H, Mean Platelet Volume 4.7L, Neutrophils (%) (Auto) 75.7H, Lymphocytes (%) (Auto) 13.9L, Monocytes (%) (Auto) 9.7, Eosinophils (%) (Auto) 0.1, Basophils (%) (Auto) 0.6, Sodium Level 138, Potassium Level 4.2, Chloride Level 106, Carbon Dioxide Level 23, Anion Gap 9, Blood Urea Nitrogen 13, Creatinine 1.1, Estimat Glomerular Filtration Rate > 60, Glucose Level 78, Calcium Level 8.7, Iron Level 8L, Total Iron Binding Capacity 132L, Percent Iron Saturation 6L, Unsaturated Iron Binding 124 Height (Feet): 5 Height (Inches): 7.00 Weight (Pounds): 130 Objective GENERAL: Awake, alert, no distress NECK: No JVD. No meningismus. No thyromegaly. Supple. Trachea midline RESP: Normal respiratory effort. Symmetric rise. CTAB CARDIAC: Regular rate and regular rhythm, HS1, HS2 normal, ABDOMEN: Soft. Nondistended. Nontender. MSK: Right ankle joint is warm and swollen. pain with range of motion of the right ankle joint. No palpable crepitus. No cellulitis. . SKIN: Warm and dry. No visible cyanosis or pallor NEUROLOGIC: Alert, oriented x3. No focal signs Kevin Madsen MD Dec 28, 2019 08:35
[2019-12-28] MEDS: Vancomycin 1gm in D5W 275ml IVPB SCH (09:33)
--- NOTE | 2019-12-28 09:58 | General Progress Note ---
Assessment/Plan Problem List: (1) Osteomyelitis ICD Codes: M86.9 - Osteomyelitis, unspecified SNOMED: 21141364 (2) Colon cancer ICD Codes: C18.9 - Malignant neoplasm of colon, unspecified SNOMED: 014995123, 5058901 Qualifiers: Qualified Codes: C18.9 - Malignant neoplasm of colon, unspecified (3) Anemia ICD Codes: D64.9 - Anemia, unspecified SNOMED: [id number] Qualifiers: Qualified Codes: D64.9 - Anemia, unspecified Assessment/Plan: no active bleeding no BM wants to leave AMA Subjective ROS Limited/Unobtainable: Yes Allergies: Coded Allergies: No Known Allergies (Unverified , 12/13/15) Objective Last 24 Hour Vital Signs Date Time Temp Pulse Resp B/P (MAP) Pulse Ox O2 Delivery O2 Flow Rate FiO2 12/28/19 08:38 Room Air 12/28/19 08:30 99.0 82 17 121/57 (78) 99 12/28/19 07:45 80 12/28/19 04:00 97.8 82 17 112/60 (77) 98 12/28/19 04:00 71 12/28/19 00:00 68 12/28/19 00:00 98.1 80 17 102/65 (77) 98 12/27/19 21:00 Room Air 12/27/19 20:00 98.1 98 20 105/62 (76) 100 12/27/19 20:00 80 12/27/19 16:00 98.2 86 20 102/53 (69) 100 12/27/19 15:41 81 12/27/19 11:56 97.6 77 20 100/58 (72) 100 12/27/19 11:44 68 Intake and Output 12/27/19 12/28/19 19:00 07:00 Intake Total 1565.000 ml 360 ml Output Total 500 ml 700 ml Balance 1065.000 ml -340 ml Intake Oral 630 ml 360 ml IV Total 935.000 ml Output Urine Total 500 ml 700 ml # Voids 3 Laboratory Tests 12/28/19 05:33: White Blood Count 15.4H, Red Blood Count 3.11L, Hemoglobin 8.1L, Hematocrit 25.7L, Mean Corpuscular Volume 83, Mean Corpuscular Hemoglobin 25.9L, Mean Corpuscular Hemoglobin Concent 31.3L, Red Cell Distribution Width 15.8H, Platelet Count 508H, Mean Platelet Volume 4.7L, Neutrophils (%) (Auto) 75.7H, Lymphocytes (%) (Auto) 13.9L, Monocytes (%) (Auto) 9.7, Eosinophils (%) (Auto) 0.1, Basophils (%) (Auto) 0.6, Sodium Level 138, Potassium Level 4.2, Chloride Level 106, Carbon Dioxide Level 23, Anion Gap 9, Blood Urea Nitrogen 13, Creatinine 1.1, Estimat Glomerular Filtration Rate > 60, Glucose Level 78, Calcium Level 8.7, Iron Level 8L, Total Iron Binding Capacity 132L, Percent Iron Saturation 6L, Unsaturated Iron Binding 124 Height (Feet): 5 Height (Inches): 7.00 Weight (Pounds): 130 General Appearance: alert EENT: normal ENT inspection Neck: supple Cardiovascular: normal rate Respiratory/Chest: decreased breath sounds Abdomen: normal bowel sounds, non tender, soft Extremities: non-tender Odell Swenson MD Dec 28, 2019 09:58
[2019-12-28] MEDS: cefTRIAXone 1 GM in D5W 110 ML IVPB SCH ×2 (10:26→10:30)
--- NOTE | 2019-12-28 10:33 | Infectious Diseases Prog Note ---
Assessment/Plan Assessment/Plan antibiotics : vancomycin iv, ceftriaxone A 1. right foot osteomyelitis 2. leucocytosis increased 3. hypertension 4. colon cancer s/p resection P 1. continue iv vancomycin 2. d/c ceftriaxone 3. start cefepime 4. will follow up cultures 5. suggest podiatry evaluation Subjective Constitutional: Denies: fever, chills Respiratory: Denies: shortness of breath, dry cough Gastrointestinal/Abdominal: Denies: nausea, vomiting, diarrhea Musculoskeletal: Reports: pain - in right foot Allergies: Coded Allergies: No Known Allergies (Unverified , 12/13/15) Objective Last 24 Hour Vital Signs Date Time Temp Pulse Resp B/P (MAP) Pulse Ox O2 Delivery O2 Flow Rate FiO2 12/28/19 08:38 Room Air 12/28/19 08:30 99.0 82 17 121/57 (78) 99 12/28/19 07:45 80 12/28/19 04:00 97.8 82 17 112/60 (77) 98 12/28/19 04:00 71 12/28/19 00:00 68 12/28/19 00:00 98.1 80 17 102/65 (77) 98 12/27/19 21:00 Room Air 12/27/19 20:00 98.1 98 20 105/62 (76) 100 12/27/19 20:00 80 12/27/19 16:00 98.2 86 20 102/53 (69) 100 12/27/19 15:41 81 12/27/19 11:56 97.6 77 20 100/58 (72) 100 12/27/19 11:44 68 Height (Feet): 5 Height (Inches): 7.00 Weight (Pounds): 130 Respiratory/Chest: lungs clear Cardiovascular: normal rate, regular rhythm, no gallop/murmur Abdomen: soft, non tender Extremities: no edema, other - right foot swelling Microbiology Date/Time Source Procedure Growth Status 12/26/19 06:35 Blood Blood Culture - Preliminary NO GROWTH AFTER 24 HOURS Resulted 12/26/19 06:35 Blood Blood Culture - Preliminary NO GROWTH AFTER 24 HOURS Resulted 12/26/19 09:50 Straight Cath Urine Culture - Preliminary NO GROWTH Resulted Laboratory Tests Test 12/28/19 05:33 White Blood Count 15.4 K/UL (4.8-10.8) H Red Blood Count 3.11 M/UL (4.70-6.10) L Hemoglobin 8.1 G/DL (14.2-18.0) L Hematocrit 25.7 % (42.0-52.0) L Mean Corpuscular Volume 83 FL (80-99) Mean Corpuscular Hemoglobin 25.9 PG (27.0-31.0) L Mean Corpuscular Hemoglobin Concent 31.3 G/DL (32.0-36.0) L Red Cell Distribution Width 15.8 % (11.6-14.8) H Platelet Count 508 K/UL (150-450) H Mean Platelet Volume 4.7 FL (6.5-10.1) L Neutrophils (%) (Auto) 75.7 % (45.0-75.0) H Lymphocytes (%) (Auto) 13.9 % (20.0-45.0) L Monocytes (%) (Auto) 9.7 % (1.0-10.0) Eosinophils (%) (Auto) 0.1 % (0.0-3.0) Basophils (%) (Auto) 0.6 % (0.0-2.0) Sodium Level 138 MMOL/L (136-145) Potassium Level 4.2 MMOL/L (3.5-5.1) Chloride Level 106 MMOL/L (98-107) Carbon Dioxide Level 23 MMOL/L (21-32) Anion Gap 9 mmol/L (5-15) Blood Urea Nitrogen 13 mg/dL (7-18) Creatinine 1.1 MG/DL (0.55-1.30) Estimat Glomerular Filtration Rate > 60 mL/min (>60) Glucose Level 78 MG/DL (74-106) Calcium Level 8.7 MG/DL (8.5-10.1) Iron Level 8 ug/dL (50-175) L Total Iron Binding Capacity 132 ug/dL (250-450) L Percent Iron Saturation 6 % (15-50) L Unsaturated Iron Binding 124 ug/dL (112-346) Current Medications Medications (Trade) Dose Ordered Sig/Gutierrez Route PRN Reason Start Time Stop Time Status Last Admin Dose Admin Acetaminophen (Tylenol) 500 mg Q6HR PRN ORAL Mild Pain and fever 12/26/19 11:15 01/25/20 11:14 12/27/19 16:53 Acetaminophen/ Hydrocodone Bitart ([place] 5/325) 1 tab Q6H PRN ORAL FOR MODERATE TO SEVERE PAIN 12/26/19 11:15 01/02/20 11:14 12/28/19 05:44 Aspirin (Ecotrin) 81 mg DAILY ORAL 12/27/19 09:00 02/10/20 08:59 12/28/19 08:09 Ceftriaxone Sodium 1 gm/ Dextrose 110 ml @ 220 mls/hr Q24H IVPB 12/27/19 10:30 01/03/20 10:29 12/28/19 10:26 Docusate Sodium (Colace) 100 mg TWICE A DAY ORAL 12/27/19 18:00 01/26/20 17:59 12/28/19 08:09 Methocarbamol (Robaxin) 750 mg TID ORAL 12/26/19 13:00 01/25/20 12:59 12/28/19 08:09 Pantoprazole (Protonix) 40 mg BEDTIME ORAL 12/27/19 21:00 01/26/20 20:59 12/27/19 21:11 Sodium Chloride 1,000 ml @ 50 mls/hr Q20H IV 12/26/19 11:15 01/25/20 11:14 12/27/19 08:34 Vancomycin HCl (Vanco pharmacy to dose) 1 ea DAILY PRN MISC Per rx protocol 12/26/19 11:15 01/25/20 11:14 Vancomycin HCl 1 gm/Dextrose 275 ml @ 183.708 mls/hr Q24H IVPB 12/27/19 10:00 01/01/20 09:59 12/28/19 09:33 Shayy Salmeron MD Dec 28, 2019 10:33
[2019-12-28 11:55] VITALS: BP 116/62
[2019-12-28] MEDS ORDERED: Cefepime HCl 1 GM in D5W 55 ML IVPB SCH (21:00)
[2019-12-28] MEDS ORDERED: AUGMENTIN 875-1 EAC1 ORAL (22:21)
--- NOTE | 2019-12-29 12:23 | Discharge Summary ---
Discharge Summary Discharge Summary _ DATE OF ADMISSION: 12/26/2019 DATE OF DISCHARGE: 12/28/2019 Patient left AGAINST MEDICAL ADVICE REASON FOR ADMISSION: 64 years old male with past medical history of colon cancer, status post resection 2 months ago at [facility], presented with right foot pain. Patient apparently seen in emergency department prior as well and offered admission secondary to grossly abnormal laboratory results and imaging findings , however patient left AGAINST MEDICAL ADVICE. Patient presented back to emergency department, requesting antibiotics and admission. Patient also complained of dark brown stools. Colonoscopy was done 2 months ago , which showed bleeding polyps. No reported fever or chills. No nausea , vomiting or diarrhea. No chest pain or shortness of breath. Upon evaluation vital signs were stable. Pulse oximetry was stable on room air. EKG revealed sinus rhythm , no acute ischemic changes. Troponin negative. Laboratory work-up revealed leukocytosis WBC 12.9, hemoglobin 7.5 ,hematocrit 24.1. CRP 20.7. BUN 31, creatinine 1.7. Glucose 108. Lactic acid 0.7. Urinalysis revealed pyuria and few bacteria. In the emergency department patient received Protonix , analgesics, started on fluid resuscitation , pancultured, started on empiric antibiotic , and admitted for further management. CONSULTANTS: ID specialist Dr. Salmeron GI specialist Dr. Swenson [facility] COURSE: Patient admitted to telemetry floor. Patient continued on IV fluids and empiric antibiotics. ID specialist followed and optimized antibiotic regimen. At the time of this dictation blood cultures came back negative. Urine cultures negative. Patient continued to have leukocytosis and one-time fever on 12/26 , which resolved. Hemoglobin and hematocrit were closely monitored with goal to keep hemoglobin above 7. Patient undergone transfusion of 1 unit of packed red blood cells while in the hospital. Prior to signing an AMA , hemoglobin 8.1 , hematocrit 25.7. GI prophylaxis provided. Bowel regimen instituted. No evidence of active bleeding. Pain management was addressed as needed. Podiatry evaluation was pending. Blood pressure remained stable without use of any antihypertensive medication at this time. Mild thrombocytosis noted , likely reactive Patient remained hemodynamically stable. Patient decided to sign AGAINST MEDICAL ADVICE. The risks and consequences of signing AGAINST MEDICAL ADVICE were discussed with patient in detail. Patient verbalized understanding, nevertheless signed AMA form and left. FINAL DIAGNOSES: Right foot osteomyelitis Colon cancer , status post resection Anemia Hypertension Right lower extremity cellulitis Thrombocytosis I have been assigned to dictate discharge summary for this account. I was not involved in the patient's management. Magalys Epps NP Dec 29, 2019 12:23
== END 2019-12-28 12:40 | disposition left against medical advice (07) | DRG 344 ==
LOC: EMR 06:34 → 2E 07:10 → EDBEDREQ 09:47 → 2E 20:55
PROC: 30233N1 Transfusion of Nonautologous Red Blood Cells into Peripheral Vein, Percutaneous Approach (ICD-10-PCS; principal; 2019-12-26)
DX: M86.8X7 Other osteomyelitis, ankle and foot (principal); L03.115 Cellulitis of right lower limb; D64.9 Anemia, unspecified; N39.0 Urinary tract infection, site not specified; Z85.038 Personal history of other malignant neoplasm of large intestine; I10 Essential (primary) hypertension; D47.3 Essential (hemorrhagic) thrombocythemia; Z79.82 Long term (current) use of aspirin
CPT/HCPCS: 36415; 80048; 80053; 80202; 81003; 82550; 82553; 83540; 83550; 83605; 84484; 85007; 85025; 85610; 85651; 85730; 86140; 86850; 86900; 86901; 86920; 87040; 87086; 93005; 96365; 96367; 96368; 96375; 99291; J7030

== ENCOUNTER 2019-12-28 20:51 | Emergency (ER) | payer MEDICARE, MEDICAID ==
[~2019-12-28] VITALS: Ht 175.3 cm; Wt 61.2 kg
[2019-12-28 21:00] VITALS: BP 125/68
[2019-12-28] MEDS ORDERED: Vancomycin 1 GM in NS 275 ML IV ONE (21:30)
[2019-12-28] MEDS ORDERED: Cefepime HCl 1 GM in NS 55 ML IV ONE (21:30)
--- NOTE | 2019-12-28 21:40 | Emergency Room Report ---
History of Present Illness General Chief Complaint: Lower Extremity Injury Source: Patient Present Illness HPI 64-year-old male with past medical history of right foot osteomyelitis, hypertension, colon cancer status post resection 3 presenting for right foot pain. Of note, patient was recently admitted to the hospital and left AGAINST MEDICAL ADVICE this morning to go to a doctor's appointment. 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 He states he is here for IV antibiotics. Patient states that he was sitting down at home his foot "busted open" and started draining fluid. He denies fevers, chills, nausea, vomiting, diarrhea, chest pain, shortness of breath, or any other complaints. The patient's symptoms were gradual onset, severity was moderate, duration since 10 days. Past medical history: Colon cancer Past surgical history: Colon resection Smoking: Denies Alcohol use: Denies Drug use: Denies Review of systems: CONST: No fevers or chills, No night sweats PULMONARY: No productive cough, No shortness of breath CARDIAC: No chest pain, No palpitations GI: No vomiting, No diarrhea , No melena_or_BRBPR : No dysuria, No hematuria, No discharge NEURO: No new_focal_weakness_or_numbness, No confusion, No vision changes 14 point Review of Systems is otherwise negative except per HPI Physical Exam: GENERAL: Awake_alert_ nontoxic, no acute distress Spo2 98% on [RA], [normal] EYES: Extraocular muscles are intact. Conjunctivae clear. Lids without swelling ENT: External nose and ear normal_in_appearance. Oropharynx clear. Head_ atraumatic, Moist_oral_mucosa NECK: No JVD. No meningismus. No thyromegaly. Supple. Trachea midline RESP: Normal respiratory effort. Symmetric rise. No stridor. Clear_to_ auscultation_No_rales_No_wheezes CARDIAC: Regular rate and regular rhythm on_auscultation No_significant pedal edema. ABDOMEN: Soft. Nondistended. Nontender_No_rebound_or_guarding. MSK: Normal muscle tone, without rigidity. Extremities without asymmetric deformity or swelling. RLE: R ankle swelling. Negative homans sign. Mild amount of serosanguinous drainage. No palpable crepitus or cellulitis. No hemorrhage. SILT. Compartments soft and compressible. SKIN: Warm and dry. No visible cyanosis or pallor NEUROLOGIC: Alert, oriented x3. Motor_and_sensation_grossly_intact. No truncal ataxia. Gait_normal Psych: Normal mood and affect, normal judgment and insight - COORDINATION OF CARE Case was discussed with: Patient Any labs and imaging that were ordered were interpreted as part of the medical decision making: Medical Decision Making/Plan: Differential diagnosis includes musculoskeletal pain, fracture, dislocation, soft tissue infection such as cellulitis or abscess, necrotizing fasciitis, compartment syndrome, septic arthritis Patient is neurovascularly intact in the right lower extremity. There is a mild amount of serosanguineous drainage from the posterior right calcaneus. Patient has exquisite pain with movement of the right lower extremity. Suspect osteoarthritis with osteomyelitis and possible contiguous joint infection. I reviewed patient's medical records from this morning when he left AGAINST MEDICAL ADVICE. Infectious disease noted in increasing leukocytosis and wanted to escalate IV antibiotic coverage from vancomycin plus Rocephin to vancomycin plus cefepime. Patient received vancomycin and cefepime here in the emergency department. I explained the life/limb threatening nature of his infection and that he needs to stay in the hospital for further management. 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 He is declining further treatment or evaluation at this time. Labs are concerning for increasing leukocytosis. Distally the patient has capillary refill <2 seconds and strong pulses. There is no pallor or pain out of proportion to exam. There is no significant swelling or venous engorgement. The patient has no significant DVT risk factors or known hypercoagulable disorder. No evidence of arterial occlusion or deep venous thrombosis. The associated joints have full range of motion without any significant pain or restriction in mobility. There is no crepitus or pain out of proportion to exam and the patient is afebrile and nontoxic. There is no overlying redness, induration, tenderness, pus, or evidence of drainable fluid collection. No evidence of septic arthritis, necrotizing fasciitis, or soft tissue infection such as abscess or cellulitis. The patient decided to leave AGAINST MEDICAL ADVICE. They understand the risks, benefits, and alternatives of continued treatment versus leaving. They understand the risks including but not limited to: worsening condition, missed diagnosis, permanent disability, loss of limb, and even associated with lack of potential further testing, monitoring, and treatments. The patient has capacity to make this decision in my opinion. The patient was encouraged to follow up with their primary care provider as soon as possible and to return immediately if they change their mind or if symptoms worsen or for any other concerns. RN was present for the discussion. All patient questions were answered. Will DC with augmentin. Allergies: Coded Allergies: No Known Allergies (Unverified , 12/13/15) COVID-19 Screening Contact w/high risk pt: No Recent Travel to affected area: No Experienced COVID-19 symptoms?: No COVID-19 symptoms experienced: Cough COVID-19 Testing performed [employer] OPERATOR: No Nursing Documentation-PMH Hx Hypertension: Yes Hx Pacemaker: No Hx Asthma: No Hx COPD: No Hx Diabetes: No Hx Cancer: Yes - colon Hx Gastrointestinal Problems: No Hx Dialysis: No Hx Neurological Problems: No Hx Cerebrovascular Accident: No Hx Seizures: No Physical Exam Vital Signs Date Time Temp Pulse Resp B/P (MAP) Pulse Ox O2 Delivery O2 Flow Rate FiO2 12/28/19 20:53 99.0 97 18 123/71 (88) 97 Room Air Sp02 EP Interpretation: reviewed, normal Procedures Critical Care Time Critical Care Time Critical Care Statement Organ systems at risk include: [cardiac / circulatory] Critical care performed for 45 minutes. Time is exclusive of separately billable procedures. Time includes: direct patient care, continuous monitoring and multiple patient reassessment, coordination of patient care, review of patient's medical records , medical consultation, family consultation regarding treatment decisions and documentation of patient care. Medical Decision Making Diagnostic Impression: Primary Impression: Osteomyelitis Additional Impressions: Anemia Wound infection Foot pain Last Vital Signs Date Time Temp Pulse Resp B/P (MAP) Pulse Ox O2 Delivery O2 Flow Rate FiO2 12/28/19 20:53 99.0 97 18 123/71 (88) 97 Room Air Disposition: AGAINST MEDICAL ADVICE Admit Decision Time: 22:40 Condition: Stable Scripts Amoxicillin/Potassium Clav 875-125* (AUGMENTIN 875-125 TABLET*) 1 Each Tablet 1 TAB ORAL TWICE A DAY, #14 TAB Prov: Nahid Bedoya MD 12/28/19 Referrals: NOT CHOSEN IPA/,REFERRING (PCP) Additional Instructions: You left against medical advice. Please follow up with your PMD as soon as possible because you have a life/limb threatening emergency. Zahra Vu D.O. Dec 28, 2019 21:40
[2019-12-28 21:52] LABS: BASOPHILS % (AUTO) 0.3 % (0.0-2.0); EOSINOPHILS % (AUTO) 0.1 % (0.0-3.0); HEMATOCRIT 25.4 % (42.0-52.0); HEMOGLOBIN 8.2 G/DL (14.2-18.0); MEAN CORPUSCULAR VOLUME 81 FL (80-99); MONOCYTES % (AUTO) 7.5 % (1.0-10.0); NEUTROPHILS % (AUTO) 79.1 % (45.0-75.0); PLATELET COUNT 541 K/UL (150-450); RED BLOOD COUNT 3.14 M/UL (4.70-6.10); WHITE BLOOD COUNT 17.5 K/UL (4.8-10.8)
[2019-12-28 22:08] LABS: ANION GAP 7 mmol/L (5-15); BLOOD UREA NITROGEN 13 mg/dL (7-18); CALCIUM 8.7 MG/DL (8.5-10.1); CARBON DIOXIDE 24 MMOL/L (21-32); CHLORIDE 105 MMOL/L (98-107); CREATININE 1.3 MG/DL (0.55-1.30); POTASSIUM 4.4 MMOL/L (3.5-5.1); SODIUM 136 MMOL/L (136-145)
[2019-12-28 22:11] LABS: INR 1.2 (0.9-1.1)
[2019-12-28] MEDS ORDERED: AUGMENTIN 875-1 EAC1 ORAL (22:21)
[2019-12-28 22:22] LABS: ALANINE AMINOTRANSFERASE 28 U/L (12-78); ALBUMIN 1.9 G/DL (3.4-5.0); ALBUMIN/GLOBULIN RATIO 0.4 (1.0-2.7); ALKALINE PHOSPHATASE 85 U/L (46-116); ASPARTATE AMINO TRANSFERASE 27 U/L (15-37); BILIRUBIN,TOTAL 0.3 MG/DL (0.2-1.0); CKMB < 0.5 NG/ML (0.0-3.6)
[2019-12-28 22:55] VITALS: BP 133/71
== END 2019-12-28 22:55 | disposition left against medical advice (07) ==
LOC: EMR 21:25
DX: M25.571 Pain in right ankle and joints of right foot (principal); M86.9 Osteomyelitis, unspecified; D64.9 Anemia, unspecified; Z85.038 Personal history of other malignant neoplasm of large intestine; I10 Essential (primary) hypertension; D72.829 Elevated white blood cell count, unspecified
CPT/HCPCS: 36415; 80053; 82553; 85025; 85610; 85651; 85730; 86140; 96365; 96368; 99291; J0692; J3370; J7050